=== PATIENT | female | born 1950 | race Caucasian/White ===

== ENCOUNTER 2016-10-13 21:30 | Emergency (ER) | payer BC, OTHER ==
[~2016-10-13] VITALS: Ht 160 cm; Wt 56.3 kg
[2016-10-13 21:32] VITALS: Ht 160 cm; Wt 56.3 kg
[2016-10-13] MEDS ORDERED: CYAN100020 PO (21:59)
[2016-10-13] MEDS ORDERED: OYST500T47 PO (21:59)
[2016-10-13] MEDS ORDERED: CHOL100010 PO (21:59)
[2016-10-13] MEDS ORDERED: SIMV20TA2 PO (21:59)
[2016-10-13] MEDS ORDERED: CEFTRIAXONE SOD INJ 1 GM ADDVIAL IV STA (22:35)
[2016-10-13 22:45] LABS: BASO % 0.5 %; BASO ABS # 0.03 K/uL (0-0.2); COMPLETE YES; EOS % 1.3 %; HEMATOCRIT 38.7 % (37-47); IG% 0.2 %; LYMPH % 27.3 %; LYMPH ABS # 1.64 K/uL (1.2-3.4); MEAN CORPUSCULAR HEMOGLOBIN 31.7 pg (25-34); MEAN PLATELET VOLUME 9.7 fL (7.4-10.4); NEUT % 64.7 %; PLATELET COUNT 161 K/uL (130-400); RED BLOOD COUNT 3.91 M/uL (4.2-5.4)
[2016-10-13 22:58] LABS: CREATININE 0.67 mg/dl (0.60-1.20); POTASSIUM 3.5 mmol/L (3.5-5.1)
[2016-10-13 23:02] LABS: CALCIUM 9.6 mg/dl (8.5-10.1)
[2016-10-14] MEDS ORDERED: SULFAMETHOXAZOLE/TRIMETHOPRIM DS 800/160MG TAB PO STA (00:17)
[2016-10-14] MEDS ORDERED: SULF800T23 PO (00:20)
[2016-10-14] MEDS ORDERED: CEPH500C PO (00:20)
[2016-10-14 00:21] VITALS: BP 137/65; PULSE 70; TEMP 36.8; O2SAT 95
--- NOTE | 2016-10-14 00:21 | EMERGENCY ROOM VISIT NOTE ---
History First contact with patient: 22:27 Chief Complaint: BITE Stated Complaint: BUG BITE RED SWOLLEN WARM TO TOUCH, LEFT ARM History of Present Illness The patient is a 66 year old female who presents to the Emergency Room with complaints of redness and pain of the left lower arm. The patient states that earlier today, she noticed a quarter-sized area of redness over the left lower arm. She states that throughout the day the swelling and pain increased. She rates her current discomfort a 4/10. She states that she has been itching that area and feels there may be a bug bite. She denies any fevers or difficulty moving the hand or wrist. The patient is otherwise healthy and denies any recent injuries to the arm. She denies any numbness or weakness. Review of Systems A complete 10 point review of systems was reviewed with the patient with pertinent positives and negatives as per history of present illness. All else were negative. Social History Smoking Status: Never Smoker Current/Historical Medications Scheduled Cephalexin Monohydrate (Keflex), 500 MG PO QID Cholecalciferol (Vitamin D), Unknown Dose PO DAILY Cyanocobalamin (Vitamin B12), Unknown Dose PO DAILY Oyster Shell (Calcium), Unknown Dose PO DAILY Simvastatin (Zocor), 20 MG PO QPM Sulfa/Trimethoprim (Bactrim Ds 800MG/160MG), 1 TAB PO BID Allergies Coded Allergies: No Known Allergies (Unverified , 10/13/16) Physical Exam Vital Signs Date Time Temp Pulse Resp B/P Pulse Ox O2 Delivery O2 Flow Rate FiO2 10/14/16 00:21 36.8 70 18 137/65 95 Room Air 10/13/16 21:32 36.5 83 18 154/68 99 Room Air Physical Exam VITALS: Vitals are noted on the nurse's note and reviewed by myself. Vital signs stable. GENERAL: This is a 66-year-old female, in no acute distress, nondiaphoretic, well-developed well-nourished. SKIN: Exam reveals an area of erythema over the dorsal aspect of the left forearm which does not extend past the wrist. This area is warm to touch and tender to palpation. There is a tiny, 2 mm vesicular lesion in the area of erythema. There is no induration or fluctuance. There is no drainage. HEART: Regular rate and rhythm without murmurs gallops or rubs. LUNGS: Clear to auscultation bilaterally without wheezes, rales or rhonchi. MUSCULOSKELETAL: Full range of motion of the left hand, wrist and elbow. NEURO: Patient was alert and oriented to person place and time. Normal sensation to light and sharp touch. Medical Decision & Procedures Laboratory Results 10/13/16 22:15 Red Blood Count 3.91, Mean Corpuscular Volume 99.0, Mean Corpuscular Hemoglobin 31.7, Mean Corpuscular Hemoglobin Concent 32.0, Mean Platelet Volume 9.7, Neutrophils (%) (Auto) 64.7, Lymphocytes (%) (Auto) 27.3, Monocytes (%) (Auto) 6.0, Eosinophils (%) (Auto) 1.3, Basophils (%) (Auto) 0.5, Neutrophils # (Auto) 3.88, Lymphocytes # (Auto) 1.64, Monocytes # (Auto) 0.36, Eosinophils # (Auto) 0.08, Basophils # (Auto) 0.03 10/13/16 22:15 Test 10/13/16 22:15 White Blood Count 6.00 K/uL (4.8-10.8) Red Blood Count 3.91 M/uL (4.2-5.4) Hemoglobin 12.4 g/dL (12.0-16.0) Hematocrit 38.7 % (37-47) Mean Corpuscular Volume 99.0 fL (80-100) Mean Corpuscular Hemoglobin 31.7 pg (25-34) Mean Corpuscular Hemoglobin Concent 32.0 g/dl (32-36) Platelet Count 161 K/uL (130-400) Mean Platelet Volume 9.7 fL (7.4-10.4) Neutrophils (%) (Auto) 64.7 % Lymphocytes (%) (Auto) 27.3 % Monocytes (%) (Auto) 6.0 % Eosinophils (%) (Auto) 1.3 % Basophils (%) (Auto) 0.5 % Neutrophils # (Auto) 3.88 K/uL (1.4-6.5) Lymphocytes # (Auto) 1.64 K/uL (1.2-3.4) Monocytes # (Auto) 0.36 K/uL (0.11-0.59) Eosinophils # (Auto) 0.08 K/uL (0-0.5) Basophils # (Auto) 0.03 K/uL (0-0.2) RDW Standard Deviation 47.5 fL (36.4-46.3) RDW Coefficient of Variation 13.3 % (11.5-14.5) Immature Granulocyte % (Auto) 0.2 % Immature Granulocyte # (Auto) 0.01 K/uL (0.00-0.02) Anion Gap 6.0 mmol/L (3-11) Est Creatinine Clear Calc Drug Dose 68.3 ml/min Estimated GFR () 106.2 Estimated GFR (Non- 91.6 BUN/Creatinine Ratio 16.0 (10-20) Calcium Level 9.6 mg/dl (8.5-10.1) Medications Administered Medications (Trade) Dose Ordered Sig/Candida Route Start Time Stop Time Status Last Admin Dose Admin Ceftriaxone Sodium (Rocephin Inj) 1 gm NOW STAT IV 10/13/16 22:35 10/13/16 22:37 DC 10/13/16 22:47 1 GM Trimethoprim/ Sulfamethoxazole (Septra Ds 800/ 160MG Tab) 1 tab NOW STAT PO 10/14/16 00:17 10/14/16 00:18 DC 10/14/16 00:35 1 TAB Medical Decision Differential diagnosis includes cellulitis, abscess, insect bite, superficial phlebitis, DVT, among others. The patient was evaluated as above. Exam is consistent with a cellulitis. CBC showed no leukocytosis. The patient was given 1 g Rocephin IV. The cellulitis was traced with a skin marker. She will be placed on Keflex and Bactrim. She was instructed to return to her primary care provider or here in 2 days for a recheck, or sooner for worsening symptoms. The patient was independently evaluated by Dr. Gipson, ED attending physician, who agreed with my assessment and treatment plan. Impression Primary Impression: Cellulitis of left arm Departure Information Dispostion Home / Self-Care Condition GOOD Prescriptions Sulfa/Trimethoprim (Bactrim Ds 800MG/160MG) Tab 1 TAB PO BID for 10 Days, #20 TAB Prov: Jacey Grewal PA-C 10/14/16 Cephalexin Monohydrate (Keflex) 500 Mg Cap 500 MG PO QID for 10 Days, #40 CAP Prov: Jacey Grewal PA-C 10/14/16 Referrals Berto Spicre M.D. (PCP) Patient Instructions My [facility] Additional Instructions You were prescribed Bactrim to be taken twice daily as prescribed. This is an antibiotic. All antibiotics have the potential to cause diarrhea. Stop this medication and contact a medical provider if you were to develop any significant adverse side effects including: wheezing, shortness of breath, passing out, vomiting, or a diffuse rash. Always take antibiotics as directed and COMPLETE the ENTIRE course regardless of the improvement of your symptoms. You were prescribed Keflex to be taken 4 times daily as prescribed. This is an antibiotic. All antibiotics have the potential to cause diarrhea. Stop this medication and contact a medical provider if you were to develop any significant adverse side effects including: wheezing, shortness of breath, passing out, vomiting, or a diffuse rash. Always take antibiotics as directed and COMPLETE the ENTIRE course regardless of the improvement of your symptoms. For pain control, you can use the following czbw-wzn-seumtiz medicines (if >12 yo): - Regular strength (325mg/tab) Tylenol (acetaminophen) 2 tabs every 4-6 hours as needed. Do not exceed 12 tablets in a 24 hour period. Avoid taking more than 4 grams (4000 mg) of Tylenol per day. This includes any other sources of acetaminophen you may take on a regular basis. - Regular strength (200 mg/tab) Advil (ibuprofen) 1-2 tabs every 4-6 hours as needed. Do not exceed a dose of 3200 mg per day. He should be rechecked on Tuesday by either your primary care provider or here in the emergency department. Return to the emergency department with any worsening redness, fevers, worsening swelling or any other new/concerning symptoms.
--- NOTE | 2016-10-14 01:34 | EMERGENCY ROOM VISIT NOTE ---
ED Visit Note First contact with patient: 22:27 66-year-old female with cellulitis of the left wrist was fully evaluated by Jacey Grewal PA-C. Please see her note. I also independently evaluated the patient. The patient was given IV antibiotics and discharged on oral antibiotics. Patient is to be reevaluated within the next 48 hours. IMPRESSION: Cellulitis Left Arm
== END 2016-10-14 00:38 | disposition home or self-care (01) ==
LOC: C.EDB 21:31
DX: L03.114 Cellulitis of left upper limb (principal)

== ENCOUNTER 2023-12-02 06:43 | Observation (INO) ==
--- NOTE | 2023-11-21 11:05 | PAT Medication Instructions ---
Medication Instructions Date of Service November 21, 2023 Home Medications calcium carbonate (Calcium 600) 600 mg PO DAILY cholecalciferol (vitamin D3) 25 mcg (1,000 unit) tablet (Vitamin D3) 25 mcg PO DAILY cyanocobalamin (vitamin B-12) 1,000 mcg tablet (Vitamin B-12) 1,000 mcg PO DAILY memantine 14 mg capsule sprinkle,extended release 24hr (Namenda XR) 14 mg PO QAM multivitamin-ferrous fumarate-folic acid 18 mg-400 mcg tablet (Centrum Women) 1 tab PO QAM simvastatin 20 mg tablet 20 mg PO HS MEDICATION INSTRUCTIONS: DO NOT take the morning of surgery multivitamin-ferrous fumarate-folic acid 18 mg-400 mcg tablet (Centrum Women) 1 tab PO QAM calcium carbonate (Calcium 600) 600 mg PO DAILY cholecalciferol (vitamin D3) 25 mcg (1,000 unit) tablet (Vitamin D3) 25 mcg PO DAILY cyanocobalamin (vitamin B-12) 1,000 mcg tablet (Vitamin B-12) 1,000 mcg PO DAILY Take morning of surgery With a small sip of water, OTHERWISE NOTHING TO EAT OR DRINK AFTER MIDNIGHT: memantine 14 mg capsule sprinkle,extended release 24hr (Namenda XR) 14 mg PO QAM Take evening before surgery simvastatin 20 mg tablet 20 mg PO HS Other Notes If you have any questions please call us at [phone] or [phone] or [phone] or [phone]
--- NOTE | 2023-11-24 10:51 | Anesthesiology Consultation ---
Date of Service November 24, 2023 Assessment & Plan (1) Encounter for pre-operative examination: - Infectious disease screening: Per assessment on 11/24/23: No known recent infectious disease contacts or current infectious disease symptoms. - Outpatient joint assessment: Pt currently scheduled for inpatient pathway. If surgeon requests review for outpatient joint pathway, patient is not recommended candidate for outpatient joint program from anesthesia standpoint based on available information. Chart Review Chart Review: Acceptable Risk for Surgery and Patient seen in Pre Admission Testing Teaching & Discussion Pre-Anesthesia Teaching/Discussion Notes: Instructed NPO after midnight before surgery,except medications with 15 cc of water. Medication instructions provided according to the PAT guidelines. History Surgery Operation Date: 12/02/23 07:00 Proposed Procedures p Right Total Hip Arthroplasty - Sancho Jonas MD Height/Weight Height: 5 ft 4 in Weight: 49.3 kg Allergies Allergy/AdvReac Type Severity Reaction Status Date / Time No Known Allergies Allergy Unverified 11/21/23 09:25 Medications Home Medications Medication Instructions Recorded Confirmed Last Taken calcium carbonate (Calcium 600) 600 mg PO DAILY 11/21/23 11/21/23 Unknown cholecalciferol (vitamin D3) 25 25 mcg PO DAILY 11/21/23 11/21/23 Unknown mcg (1,000 unit) tablet (Vitamin D3) cyanocobalamin (vitamin B-12) 1,000 mcg PO DAILY 11/21/23 11/21/23 Unknown 1,000 mcg tablet (Vitamin B-12) memantine 14 mg capsule 14 mg PO QAM 11/21/23 11/21/23 Unknown sprinkle,extended release 24hr (Namenda XR) multivitamin-ferrous 1 tab PO QAM 11/21/23 11/21/23 Unknown fumarate-folic acid 18 mg-400 mcg tablet (Centrum Women) simvastatin 20 mg tablet 20 mg PO HS 11/21/23 11/21/23 Unknown Wheeled Walker #1 ea 11/22/23 Unknown Past Medical History Medical History Arthritis of right hip Cognitive decline No definitive diagnosis per daughter Reason for Memantine Dyslipidemia History of COVID-19 (2021) Symptoms resolved Exercise / Class Metabolic Activity III < 4 Walking/Shop/Light housework Past Surgical History Surgical History Hx of colonoscopy Hx of vascular surgery varisose veins Past Anesthesia History No Hx of Anesthesia Complications and No Family Hx of Anesthesia Complications History of PONV No Hx of PONV and No Hx of Motion Sickness Social History Smoking Status: Never smoker Do You Dip or Chew Tobacco: No Hx Alcohol Use: Yes alcohol intake frequency: holidays/special occasions only Hx Substance Use: No substance use type: does not use Review of Systems Patient denies chest pain, shortness of breath, fever, chills, cough, wheezing, palpitations. Physical Exam Vital Signs BP 150/64 P 75 SP02 96%RA RESP 16 Physical Full cervical extension range of motion. Full TMJ range of motion. TMD 3 finger breaths Mallampati Score 1 Dentition: upper/lower full dentures Lungs: clear throughout to auscultation Cardiac: regular rate and rhythm, no murmurs noted Spine: spinal deviation Carotid arteries: negative bruit Extremities: no LE edema Lab Results Anesthesia Preop Results Results Anesthesia Widget: WBC 3.81 K/ul (4.8-10.8) L 11/24/23 Hgb 12.3 g/dl (12.0-16.0) 11/24/23 Hct 37.3 % (37.0-47.0) 11/24/23 Plt 155 K/uL (130-400) 11/24/23 Na 144 mmol/L (136-145) 11/24/23 K 4.1 mmol/L (3.5-5.1) 11/24/23 Cl 108 mmol/L (98-107) H 11/24/23 CO2 32 mmol/L (21-32) 11/24/23 BUN 7 mg/dl (6-23) 11/24/23 Creat 0.57 mg/dl (0.6-1.2) L 11/24/23 Glucose Level 96 mg/dl (70-99(Fasting)) 11/24/23 PT 10.6 Seconds (9.0-12.0) 11/24/23 PTT 26 Seconds (21-31) 11/24/23 INR 1.0 (0.9-1.1) 11/24/23 Blood Type A Negative 11/24/23 Antibody Screen NEGATIVE 11/24/23 Testing Laboratory Results Low WBC- preop testing forwarded to PCP for continuity of care* Electrocardiogram Date: 11/24/23 NSR at 68bpm. "Normal ECG" Chest X-Ray Date: 11/24/23 FINDINGS: Degenerative changes are seen in the bilateral shoulders. Calcified aortic knob is seen. The lungs are clear. No evidence of pleural effusion or p neumothorax. IMPRESSION: No acute chest disease.
[~2023-12-02 06:43] MED LIST: ROPIVACAINE 0.5% 5 MG/ML 30 ML VIAL ONE
[2023-12-02] MEDS: ACETAMINOPHEN 500 MG TAB PO SCH ×2 (07:16→14:09)
[2023-12-02] MEDS: FAMOTIDINE 20 MG TAB PO SCH (07:16)
[2023-12-02] MEDS: LR 60ML/HR IV SCH (07:17)
[2023-12-02] MEDS: dexAMETHasone**PF** 10 MG/ML VIAL IV SCH (07:17)
[2023-12-02] MEDS: CeleBREX 200 MG CAP PO SCH (07:17)
[2023-12-02] MEDS: METOCLOPRAMIDE HCL 10 MG TABLET PO SCH (07:17)
[2023-12-02] MEDS ORDERED: PROPOFOL IV EMULSION 10 MG/ML 20 ML VIAL IV ONE (07:23)
[2023-12-02] MEDS ORDERED: fentaNYL citrate PF 100 MCG/2 ML VIAL ONE (07:24)
[2023-12-02] MEDS ORDERED: MoRPHine SULFATE PF 1 MG/ML 10 ML AMP/VIAL ONE (07:24)
[2023-12-02] MEDS ORDERED: MIDAZOLAM HCL 1 MG/ML 2ML VIAL ONE (07:24)
[2023-12-02] MEDS: LR 500ML BOLUS, THEN 15ML/HR IV SCH (08:02)
[2023-12-02] MEDS ORDERED: KETOROLAC 30 MG/ML VIAL IV PRN (08:07)
[2023-12-02] MEDS ORDERED: HYDROmorphone INJ 1 MG/ML SYRINGE IV PRN (08:07)
[2023-12-02] MEDS ORDERED: ONDANSETRON INJ 2 MG/ML 2 ML VIAL IV PRN ×2 (08:07→12:14)
[2023-12-02] MEDS ORDERED: ePHEDrine sulfate 50 MG/ML AMP IV PRN (08:07)
[2023-12-02] MEDS ORDERED: ATROPINE SULFATE 0.1 MG/ML 10ML SYR IV PRN (08:07)
[2023-12-02] MEDS: TRANEXAMIC ACID 1,000 MG **IV Pre-op IV SCH (08:30)
--- NOTE | 2023-12-02 08:39 | History & Physical Bridge Note ---
Date of Service December 02, 2023 History & Physical Bridge Note I have examined the patient, reviewed the History & Physical and in the interval since the performance of the History & Physical I have noted the following changes of clinical significance: no changes noted
[2023-12-02] MEDS: ceFAZolin 2000MG 2,000 MG/15 ML SYR IV SCH (09:11)
[2023-12-02] MEDS ORDERED: PHENYLEPHRINE 100MCG/ML 10ML SYR IV ONE (09:30)
[2023-12-02] MEDS: BUPIVACAINE/EPINEPHRINE 0.5% MPF 1:200,000 30 ML VIAL ONE (10:01)
--- NOTE | 2023-12-02 10:49 | Operative Report ---
PG Post Operative Report Pre & Post Diagnosis Operation Date: 12/02/23 08:50 Pre-Op Diagnosis: Right Hip Degenerative Joint Disease Post-Op Diagnosis: Right Hip Degenerative Joint Disease I identified the patient and participated in the time-out.: Yes Procedure Operation Date: 12/02/23 08:50 Actual Procedures p Right Total Hip Arthroplasty, Cemented (Right) - Sancho Jonas MD Surgeon Sancho Jonas MD Armored Service Technician Mejia Lechuga PA-C Estimated Blood Loss 100 Findings Consistent with Post-Op Diagnosis Operative findings were Bryans right hip DJD. She had extensive grade 4 fwsk-up-slej disease the femoral head and acetabulum with acetabulum and femoral head erosions. She had an anterior acetabular osteophyte. Moderate-sized joint effusion. Fairly stiff hip preoperatively. Specimens Right femoral head sent for pathology. Anesthesia Type Spinal MAC Complications none Indications Patient is a 73-year-old female with some mild underlying dementia with underlying rheumatoid disease as well whose had a several year history of increasing right hip pain discomfort and decreased mobility. Over time she has had become more more difficulty walking due to her hip problem. She failed conservative measures. X-rays show advanced hip arthritis. She elected proceed with surgical management. We were concerned about her mild underlying dementia and I did all we could do a medical her right hip is stable as possible. This included using a dual mobility hip system. Description of Procedure Operative implants consist of: 1 Biomet G7 size 52 mm acetabular shell. 2. 6.5 cancellous acetabular screws 1 of 35 mm in length and 1 of 20 mm length. 3. 52 mm outer diameter and 42 mm inner diameter mobile-bearing metal liner. 4. DePuy size 3 [place] high offset cemented femoral stem. 5. +5/28 mm head with a 20 mm / 42 mm dual mobility polyethylene liner. 6. 10.5 as centralizer. 7. Small cement restrictor. The patient was taken the operating, identified, placed on the operating table in the supine position but all contractors were appropriately padded. IV antibiotics tried by anesthesia team. Spinal anesthetic had been implemented holding area. A Gramajo catheter was placed in sterile fashion. The patient was then placed in the left lateral decubitus position. An axillary roll was placed. Distal Birkett position was used for positioning. The right hip and leg were then prepped and draped in usual sterile fashion. A posterolateral approach to the right hip was then formed to a curvilinear incision centered over the greater trochanter. Sharp dissection carried through subcutaneous tissue down to level the IT band gluteal fascia. The IT band gluteal fascia incised longitudinally in line with skin incision. The underlying greater bursa was excised. The piriformis and external rotators along with the hip joint capsule were released from the posterior aspect the hip as a single layer. Great care was taken to the procedure protect the sciatic nerve at all times. The hip was very carefully internally rotated and dislocated. A femoral neck osteotomy cut was made about 10 mm above the lesser trochanter. Femoral head was removed and sent for pathology. The femur was re tracted anteriorly. Attention drawn the acetabulum. The labrum was excised. The pulmonary fat was excised. Sequential reaming the acetabular was then performed beginning with size 43 and progressing up to a 51. I reamed a little bit with a 52 reamer and then placed a 52 mm G7 acetabular shell in about 40 degrees lateral opening and 20 degrees of anteversion. It was fixed with 2 screws. Trial liner was placed. A small anterior osteophyte was removed. Attention drawn the femur. The proximal femur was entered with a ERUCES cutter followed by canal finder and lateralizing reamer. Then broached beginning with a size 1 and progressing up to 3. Get excellent fitted to 3. We trialed the hip and the +5 articular ball provided full stability. Leg lengths seemed equal. Soft tissue tension seemed appropriate. It was not nearly as tight in extension as her hip preoperatively. The hip was fully stable full extension and external rotation flexion to 90 degrees internal rotation over [address] I elected to place these implants. All trial implants were removed. A dual mobility metal liner was placed. A small cement restrictor was placed on the canal. A double batch Pal[place]os G c ement was mixed. This is injected in the canal and a size 3 high offset femoral stem was placed. All extraneous cement was removed. Once cement was hardened a +5/28 mm ball with a dual mobility 42 mm outer diameter/28 mm diameter liner was placed. Hip was located and once again found to be stable. Attention drawn toward closing. The wound was irrigated copious also pulsatile lavage solution. I did inject locally with 50 cc of half percent Marcaine with epinephrine. The posterior capsule and external rotators then repaired through drill holes in the posterior trochanter with #2 Tycron suture. The IT band gluteal fascia then closed in 1 PDS suture running fashion for subcutaneous tissue then closed with 2 layers of the deep layer #1 Vicryl suture subcutaneous tissue with 2-0 Dexon suture in a buried interrupted fashion. Skin was closed skin emelia. Leg was then cleaned and dried a sterile dressing with Xeroform, 4 fours, sterile ABD pad and foam tape was applied. The patient was then transferred to the recovery room in stable condition. Patient tolerated procedure well and there were no complications. Mejia Lechuga, my physician yard assistant, was present for the entire procedure. His assistance was essential and required for appropriate patient positioning, prepping and draping, surgical exposure, performing the technical details of the operation, placement the implants, closure of the wound, and placement of the sterile bandage. I attest to the content of the Intraoperative Record and any orders documented therein. Any exceptions are noted below.
--- OUTSIDE RECORDS SUMMARY | 2023-12-02 10:59 | External Medical Summary | Summary of Care ---
Author Name Unknown Organization [facility] Address [address] [facility] [place] [address] Phone [phone] Care Team Providers Care Anchor Tacker Name Role Phone Zelda Klein MD Primary Care Provider [phone] Encounter Details Date Type Department Care Team (Late st Contact Info) Description 11/24/2023 Result Scan Unspecified Department <No scans attached> Allergies No known active allergiesdocumented as of this encounter (statuses as of 11/29/2023) Medications Medication Sig Dispensed Refills Start Date End Date Status CALCIUM-VITAMIN D 250-125 MG-UNIT PO TABS pt unsure of the dose, when she remember to take it. Active VITAMIN D 1000 UNITS PO CAPS 1 cap daily Active CYANOCOBALAMIN (VITAMIN B-12) 100 MCG Tablet Take 1 Tablet by mouth in the morning. Active Latrell Multivitamin for Women Oral Tablet Take 1 Tab by mouth daily. Active Memantine HCl ER 7 MG Oral Capsule Extended Release 24 Hour (Namenda XR) Take by mouth daily. Take with largest meal of the day. Active Memantine HCl ER 14 MG Oral Capsule Extended Release 24 Hour (Namenda XR) Take 1 Capsule by mouth in the morning. Take with largest meal of the day.. 90 Capsule 3 05/30/2023 Active Simvastatin 20 MG Oral Tablet (Zocor)Indications:Dy slipidemia, goal LDL below 130 TAKE 1 TABLET BY MOUTH ONCE DAILY AT BEDTIME 90 Tablet 3 06/20/2023 Active documented as of this encounter (statuses as of 11/29/2023) Active Problems Problem Noted Date Diagnosed Date Memory deficit 04/26/2023 Rotator cuff arthropathy of right shoulder 04/26 Chronic bilateral low back pain without sciatica 04/26/2023 Unspecified dementia, unspec ified severity, without behavioral disturbance, psychotic disturbance, mood disturbance, and anxiety 04/26/2023 Dyslipidemia, goal LDL below 130 01/16/2013 Vitamin D deficiency 08/24/2011 ADVANCE DIRECTIVE INFORMATION 04/16/2005 Overview: No, Advance Directive brochure offered , patient declined. Personal history of colonic polyps 11/02/2004 Age-related osteoporosis wit hout current pathological fracture 12/23/2003 Varicose vein of leg 12/05/1998 documented as of this encounter (statuses as of 11/29/2023) Resolved Problems Problem Noted Date Diagnosed Date Resolved Date Viral URI 06/30/2017 2017 Other primary thrombocytopenia 08/24/2011 06/30/2017 Hyperlipidemia with target LDL less than 100 2 01/16/2013 Overview: ICD-10 update of inactive term Other, multiple, and unspeci fied sites, insect bite, nonvenomous, without mention of infection(919.4) 04/02/2010 04/02/2010 INSECT BITE-tick 04/02/2010 2017 SPRAIN LUMBOSACRAL 09/21/1999 8 Dyslipidemia, goal to be determined 12/05/1998 03/12/2011 documented as of this encounter (statuses as of 11/29/2023) Immunizations Name Administration Dates Next Due COVID-19 mRNA, LNP-s, No Pre serve, 2-Dose Series (Moderna) 08/01/2020,07/04/2020 COVID-19, MRNA-LNP, 23-24, P F, 50 MCG/0.5 mL, 12 YRS AND ABOVE, IM (MODERNA-Spikevax) 04/01/2023 COVID-19, mRNA, LNP-s, PF, B ooster, 100mcg/0.5mg (Moderna) 12/24/2021 Pneumococcal Conjugate Vacc, 13 Valent (Prevnar) 07/24/2015 Pneumococcal Polysaccharide PPV23 (Pneumovax) 08/11/2016 Seasonal Influenza, PF, 6 M & above, IM , (FluLaval or Fluzone) 02/19/2020,02/20/2019,02/17/2018 Seasonal Influenza, Quadriva lent Hd (Fluzone Hd) 02/17/2023,03/18/2022,02/23/2021 Seasonal Influenza, Quadriva lent, No Preserve, IM 02/28/2017,04/16/2016 Seasonal Influenza, Split, I IV3, With Preserve, Inj 02/27/2015,03/14/2014,02/28/2013,02/12,03/12/2011 02/28/2016 TDAP (age 10 and older)(Boostrix) 12/07/2021 TDAP, Age 7 and older, IM (Adacel) 04/02/2011 Varicella Zoster Vaccine (Adult) 12/16/2011 Zoster Vaccine Recombinant (Shingrix) 04/02/2019 ,11/15/2018,11/25/2017 documented as of this encounter Social History Tobacco Use Types Packs/Day Years Used Date Smoking Tobacco: Never Passive Smoke Exposure: Never Smokeless Tobacco: Never Alcohol Use Standard Drinks/Week Comments Yes 0 (1 standard drink = 0.6 oz pur e alcohol) rarely PHQ-2 Answer Date Recorded PHQ Adult Total Score 0 04/05/2023 Hunger Vital Sign Answer Date Recorded Within the past 12 months, y ou worried that your food would run out before you got the money to buy more. Never true 04/05/20 23 Within the past 12 months, t he food you bought just didn't last and you didn't have money to get more. Never true 04/05/2023 Sex and Gender Information Value Date Recorded Sex Assigned at Female 11/28/2017 4:11 PM EDT Gender Identity Female 11/28/2017 4:11 PM EDT Sexual Orientation Straight 11/28/2017 4: 11 PM EDT Job Start Date Occupation Industry Not on file Not on file Not on file documented as of this encounter Plan of Treatment Upcoming Encounters Date Type Department Care Team (Late st Contact Info) Description 11/29/2023 2:00 PM EDT Office Visit [place] [address] [facility] [place] [address] Dinh Kern MD [address] [place] [facility] [place] [address] 04/11/2024 10:00 AM EDT Nurse Only Ancillary Department, [place] [address] [place] [address] [place], Nurse [facility] [address] [place] [facility] [place] [address] 07/24/2024 10:00 AM EST Office Visit Rheumatology [place] [id number] [place] [address] Munira Gonzales CRNP [address] [place] [address] Scheduled Procedures Name Priority Associated Diagnoses Date/Ti me COLONOSCOPY FLEXIBLE PROXIMA L DIAGNOSTIC Recall Special screening for malignant neoplasms, colon Health Maintenance Due Date Last Done Comments Cologuard 1995 Fecal Occult Blood Test 1995 Sigmoidoscopy 1995 COVID-19 Vaccine ( season) 2023 04/01/2023, 12/24/2021, 08/01/2020, Additional history exists Mammogram 11/18/2023 11/17/2022, 12/2022, 08/05/2021, Additional history exists Depression Screening 04/05/2024 04/05/2023 Colonoscopy 05/02/2024 05/02/2014, 04/14, 04/22/2004 Colorectal Cancer Screening 05/02/2024 DXA Scan 12/15/2024 12/15/2022, 10/2022, 09/27/2018, Additional history exists Lipid Panel 02/18/2028 02/17/2023, 07/14, 06/02/2020, Additional history exists DTaP,Tdap,and Td Vaccines (3 - Td or Tdap) 12/08/2031 12/07/2021, 04/02/2011, 11/29/2002 *BISPHONATE OR OTHER ACCEPTABLE MEDICATION NEEDED FOR OSTEOPOROSIS (REFER TO SMARTSET #1146) Addressed 05/21/2015 (Not indicated) Overridden with the intention of not completing the topic Pneumococcal Vaccine: 65+ Years Completed 08/11/2016, 07/24/2015 Zoster Vaccines Completed 04/02/2019, 10/2018, 11/25/2017, Additional history exists VITAMIN D LEVEL ONCE IN A LIFETIME-USE SMARTSET# [id number] Completed 02/16/2022, 06/02/2020, 02/20/2019, Additional history exists Influenza Vaccine (FLU shot) Completed 02/17/2023, 03/18/2022, 02/23/2021, Additional history exists GARDASIL-HPV IMMUNIZATION SERIES Aged Out No longer eligible based on patient's age to complete this topic Hepatitis B Aged Out No longer eligi ble based on patient's age to complete this topic MENINGOCOCCAL (MENACTRA/MENVEO) Aged Out No longer eligible based on patient's age to complete this topic documented as of this encounter Medical Devices Not on filedocumented as of this encounter Procedures Procedure Name Priority Date/Time Associated Diagnosis Comments EKG SCANNED RESULT 11/24/2023 documented in this encounter Results * EKG SCANNED RESULT (11/24/2023) 11/24/2023 No Physician Data Unknown EKG documented in this encounter Care Teams Anchor Tacker Relationship Specialty Start Date End Date Zelda Klein MD [address] [place] [address] PCP - General Internal Medicine 02/16/22 documented as of this encounter
--- OUTSIDE RECORDS SUMMARY | 2023-12-02 10:59 | External Medical Summary | Summary of Care ---
Author Name Unknown Organization [facility] Address [address] [place] [facility] [place] [place] [address] Phone [phone] Care Team Providers Care Weaver Apprentice Name Role Phone Zelda Klein MD Primary Care Provider [phone] Encounter Details Date Type Department Care Team (Late st Contact Info) Description 11/29/2023 Orders Only [place] [address] [place] [address] Zelda Klein MD [address] [place] [address] Allergies No known active allergiesdocumented as of [...] Description 11/29/2023 2:00 PM EDT Office Visit [facility] [place] [address] [facility] [phone] Dinh Kern MD [address] [place] [facility] [place] [address] 04/11/2024 10:00 AM EDT Nurse Only Ancillary Department, [place] [address] [facility] [address] [place], Nurse Annual [facility] [address] [facility] [place] [phone] 07/24/2024 10:00 AM EST Office Visit Rheumatology [place] [address] [place] [address] Munira Gonzales CRNP [facility] [place], [place] [address] Scheduled Procedures Name Priority Associated Diagnoses Date/Ti [...] Cancer Screening 05/02/2024 DXA Scan 12/15/2024 12/15/2022, 0710/2022, 09/27/2018, Additional history exists Lipid Panel 02/18/2028 [...] D LEVEL ONCE IN A LIFETIME-USE SMARTSET# 27971 Completed 02/16/2022, 06/02/2020, 02/20/2019, Additional history exists [...] Procedure Name Priority Date/Time Associated Diagnosis Comments XR CHEST 2 VIEWS Routine 11/24/2023 documented in this encounter Results * XR CHEST 2 VIEWS (11/24/2023) Anatomical Region Laterality Modality Chest Other 11/24/2023 Sancho Jonas MD RADIOLOGY (RAD G ENERAL) documented in this encounter Care Teams Weaver Apprentice Relationship Specialty Start Date End Date Zelda Kleni MD [address] [place], [place] [phone] PCP - General Internal Medicine 02/16/22 documented as of this encounter
--- OUTSIDE RECORDS SUMMARY | 2023-12-02 10:59 | External Medical Summary | Summary of Care ---
Author Name Unknown Organization [facility] Address [address] [place] [facility] [place] [address] Phone [phone] Care Team Providers Care Energy Crop Farmer Name Role Phone Zelda Klein MD Primary Care Provider [phone] Encounter Details Date Type Department Care Team (Late st Contact Info) Description 11/29/2023 Orders Only [place] [address] [place] [address] Zelda Klein MD [address] [place] [address] Allergies No known active allergiesdocumented [...] 2:00 PM EDT Office Visit [facility] Practice, [place] [address] [facility] [phone] Dinh Kern MD [address] [place] [facility] [place] [address] 04/11/2024 10:00 AM EDT Nurse Only Ancillary Department, [place] [address] [facility] [address] [place], Nurse Annual [facility] [address] [facility] [place] [phone] 07/24/2024 10:00 AM EST Office Visit Rheumatology [place] [address] [place] [address] Munira Gonzales CRNP [facility] [place], [place] [address] Scheduled Procedures Name Priority Associated Diagnoses Date/Ti [...] D LEVEL ONCE IN A LIFETIME-USE SMARTSET# [id number] Completed 02/16/2022, 06/02/2020, 02/20/2019, Additional history exists [...] Procedure Name Priority Date/Time Associated Diagnosis Comments CHEMISTRY-OUTSIDE Routine 11/24/2023 documented in this encounter Results * (ABNORMAL) CHEMISTRY-OUTSIDE (11/24/2023) Not all results display below - see scan for full detail OUTSIDE LAB (SEE SCANNED REPORT) Comment:SCAN INCLUDES: BMP, PT INR, PTT, CBCD CREATININE-OUTSID E LAB 0.57(A) 0.6 - 1.2 MG/DL OUTSIDE LAB (SEE SCANNED REPORT) EGFR-OUTSIDE LAB 92.0 ML/MIN OUT SIDE LAB (SEE SCANNED REPORT) POTASSIUM-OUTSIDE LAB 4.1 3.5 - 5.1 MMOL/L OUTSIDE LAB (SEE SCANNED REPORT) GLUCOSE-OUTSIDE LAB 96 70 - 99 MG/DL OUTSIDE LAB (SEE SCANNED REPORT) HOURS FASTING OUTSID E LAB (SEE SCANNED REPORT) TRIGLYCERIDES-OUT SIDE LAB OUTSIDE LAB (SEE SCANNED REPORT) CHOLESTEROL-OUTSI DE LAB OUTSIDE LAB (SEE SCANNED REPORT) HDL-OUTSIDE LAB OUTS [facility] (SEE SCANNED REPORT) CHOL/HDL RATIO-OUTSIDE LAB OUTSIDE LA B (SEE SCANNED REPORT) LDL (CALCULATED)-OUTS [facility] OUTSIDE LAB (SEE SCANNED REPORT) LDL (DIRECT MEASURE)-OUTSIDE LAB OUTSIDE LAB (SEE SCANNED REPORT) HEMOGLOBIN, Q9C-APIHQET LAB OUTSIDE LAB (SEE SCANNED REPORT) PHOSPHORUS-OUTSID E LAB OUTSIDE LAB (SEE SCANNED REPORT) PTH-OUTSIDE LAB OUTS [facility] (SEE SCANNED REPORT) MICROALBUMIN RATIO-OUTSIDE LAB OUTSIDE LA B (SEE SCANNED REPORT) PROTEIN, UA-OUTSIDE LAB OUTSIDE LAB (SEE SCANNED REPORT) HGB 12.3 12 - 16 G/DL OUTSIDE LAB (SEE SCANNED REPORT) 11/24/2023 Sancho Jonas MD LABORATORY OUTSIDE LAB (SEE SCANNED REPORT) documented in this encounter Care Teams Energy Crop Farmer Relationship Specialty Start Date End Date Zelda Klein MD [address] [place] [facility] [place] [address] PCP - General Internal Medicine 02/16/22 documented as of this encounter
--- OUTSIDE RECORDS SUMMARY | 2023-12-02 10:59 | External Medical Summary | Summary of Care ---
Author Name Unknown Organization [facility] Address [address] [facility] [address] Phone [phone] Care Team Providers Care Staffing Coordinator Name Role Phone Zelda Klein MD Primary Care Provider [phone] Reason for Visit * Reason Comments Follow Up Pt here for 6 month follow upPt is having trouble with memory Encounter Details Date Type Department Care Team (Late st Contact Info) Description 11/29/2023 2:00 PM EDT Office Visit [place] [address] [place] [address] Dinh Kern MD [address] [place] [address] Moderate dementia without behavioral disturbance, psychotic disturbance, mood disturbance, or anxiety, unspecified dementia type (HCC)*; Memory deficit; Memory loss Allergies No known active allergiesdocumented as of [...] by mouth daily. Active Memantine HCl ER 14 MG Oral Capsule Extended Release 24 Hour (Namenda XR) Take 1 Capsule by mouth in the morning. Take with largest meal of the day.. 90 Capsule 3 05/30/2023 Active Simvastatin 20 MG Oral Tablet (Zocor)Indications :Dyslipidemia, goal LDL below 130 TAKE 1 TABLET BY MOUTH ONCE DAILY AT BEDTIME 90 Tablet 3 06/20/2023 Active Memantine HCl ER 7 MG Oral Capsule Extended Release 24 Hour (Namenda XR) Take by mouth daily. Take with largest meal of the day. 11/29/2023 Discontinue d(Patient preference/ discontinua tion) documented as of this encounter (statuses as of 11/29/2023) Active Problems Problem Noted Date Diagnosed Date Memory loss 04/26/2023 Rotator cuff arthropathy of right shoulder [...] money to get more. Never true 04/05/2023 Childcare Answer Date Recorded Do you feel overwhelmed with taking care of a child, family member or friend? No 04/05/2023 Does your family need help f inding childcare? (Household - for ages 0-17 years) Not on file 04/05/2023 Clothing Answer Date Recorded Have you been unable to get clothing when it was really needed? No 04/05/2023 Is your family able to get c lothes or diapers when needed? (Household - for ages 0-17 years) Not on file 04/05/2023 Personal Safety Answer Date Recorded Do you feel unsafe or have concerns for your saf ety? No 04/05/2023 Do you have concerns for you r family's safety? (Household - for ages 0-17 years) Not on file 04/05/2023 Utilities Answer Date Recorded Do you have trouble paying y our heating, water, or electric bill? No 04/05/2023 Is your family able to pay t he heat, water, or electric bill? (Household - for ages 0-17 years) Not on file 04/05/2023 Does your family have access to good internet? (Household - for ages 0-17 years) Not on file 04/05/2023 Employment Status Answer Date Recorded Are you unemployed or without regular income? No 04/05/2023 Does the household have a [facility] source of income? (Household - for ages 0-17 years) Not on file 04/05/2023 Social Connections Answer Date Recorded How often do you feel lonely or isolated from th ose around you? Never 04/05/2023 Financial Resource Strain Answer Date R ecorded Do you have any trouble payi ng for your medications, or do you think you might in the future? No 04/05/2023 Does your family have troubl e paying for medicine? (Household - for ages 0-17 years) Not on file 04/05/2023 Transportation Needs Answer Date Record ed READ ONLY Do you have troubl e getting a ride to medical visits or work? Never True 04/05/2023 Does your family have a hard time getting a ride to doctors visits? (Household - for ages 0-17 years) Not on file 04/05/2023 Has lack of transportation k ept you from medical appointments, meetings, work, or from getting things needed for daily living? Check all that apply. (Adult - for ages 18 years and over) Not on file 04/05/2023 Do you (or your family) have trouble finding or paying for a ride (transportation)? (Household - for ages 0-17 years) Not on file 04/05/2023 Housing Stability Answer Date Recorded Do you currently live in a s helter or have no steady place to sleep at night? No 04/05/2023 READ ONLY Do you think you a re at risk of becoming homeless? No 04/05/2023 Does your family worry about paying for your home or becoming homeless? (Household - for ages 0-17 years) Not on file 1 Are you homeless or worried that you might be in the future? (Adult - for ages 18 years and over) Not on file Are you (or your family) hansel eless or worried that you might be in the future? (Household - for ages 0-17 years) Not on file Food Insecurity Answer Date Recorded Do you need food for this week? No 04/05/2023 Are you able to get enough f ood for your family? (Household - for ages 0-17 years) Not on file 04/05/2023 Does your family need food t his week? (Household - for ages 0-17 years) Not on file 04/05/2023 Do you always have enough fo od for your family? (Household - for ages 0-17 years) Not on file 04/05/2023 Sex and Gender Information Value Date Recorded Sex Assigned at Female 11/28/2017 4:11 PM EDT Gender Identity Female 11/28/2017 4:11 PM EDT Sexual Orientation Straight 11/28/2017 4: 11 PM EDT Job Start Date Occupation Industry Not on file Not on file Not on file documented as of this encounter Last Filed Vital Signs Vital Sign Reading Time Taken Comments Blood Pressure 128/68 11/29/2023 1:41 PM EDT Pulse 84 11/29/2023 1:41 PM EDT Temperature - - Respiratory Rate 16 11/29/2023 1:41 PM EDT Oxygen Saturation 97% 11/29/2023 1:41 PM EDT Inhaled Oxygen Concentration - - Weight 48.6 kg (107 lb 3.2 oz) 11/29/2023 1:41 P M EDT Height - - Body Mass Index 21.65 04/26/2023 1:04 PM EST documented in this encounter Progress Notes * Dinh Kern MD - 11/29/2023 2:00 PM EDT Subjective: Nicolasa Lynch is a 73 year old female. Chief Complaint Patient presents with Follow Up Pt here for 6 month follow up Pt is having trouble with memory HPI: A 73-year-old seen today in part as a six-month recheck especially in regards to known short-term memory difficulties. She was started on Namenda per Dr. Klein about 1 year ago. She asked for referral to Neurology for further evaluation in this regard. She is scheduled for right hip replacement surgery with Dr. Sancho Jonas at [facility] on December 02 2023. She has already had her pre anesthesia evaluation including chest x-ray which was Um remarkable and a normal EKG and blood work which showed normal renal function and electrolytes. She would slightly low white blood cell count and red blood cell count and hemoglobin but within normal limits. She has been bothered with pain in the right hip especially trying to get up out of a chair and with walking. She has not bothered with exertional chest pain or shortness of breath or abnormal bleeding or chronic cough or febrile illness. She is some slight ankle edema which is chronic in nature. Past medical history is notable for the memory deficits consistent with dementia . She does not have a history of cardiovascular disease including no history of hypertension. She has not diabetic. She does not have a history of COPD. She has a history of an episode of phlebitis in the past but no history of thromboembolic disease. Overall she really has enjoyed good health. Patient Active Problem List Diagnosis Varicose vein of leg Age-related osteoporosis without current pathological fracture Personal history of colonic polyps ADVANCE DIRECTIVE INFORMATION Vitamin D deficiency Dyslipidemia, goal LDL below 130 Memory deficit Rotator cuff arthropathy of right shoulder Chronic bilateral low back pain without sciatica Unspecified dementia, unspecified severity, without behavioral disturbance, psychotic disturbance, mood disturbance, and anxiety (HCC) Current Outpatient Medications Medication Sig Dispense Refill CALCIUM-VITAMIN D 250-125 MG-UNIT PO TABS pt unsure of the dose, when she remember to take it. VITAMIN D 1000 UNITS PO CAPS 1 cap daily CYANOCOBALAMIN (VITAMIN B-12) 100 MCG Tablet Take 1 Tablet by mouth in the morning. Latrell Multivitamin for Women Oral Tablet Take 1 Tab by mouth daily. Memantine HCl ER 14 MG Oral Capsule Extended Release 24 Hour (Namenda XR) Take 1 Capsule by mouth in the morning. Take with largest meal of the day.. 90 Capsule 3 Simvastatin 20 MG Oral Tablet (Zocor) TAKE 1 TABLET BY MOUTH ONCE DAILY AT BEDTIME 90 Tablet 3 No current facility-administered medications for this visit. Review of patient's allergies indicates: No Known Allergies Objective: BP 128/68 | Pulse 84 | Resp 16 | Wt 48.6 kg (107 lb 3.2 oz) | SpO2 97% | BMI 21.65 kg/m | BSA 1.42 m Physical Exam: CONST: alert, pleasant, no acute distress HEAD: normocephalic, atraumatic Eyes - PERRLA, EOM'I OROPHARYNX: clear, no swelling or erythema, moist CV: regular rate and rhythm, no murmur CHEST: clear to auscultation bilaterally, no rales or wheezing ABD: soft, non tender, non distended, no masses or hepatosplenomegaly EXT: Um trace bilateral ankle edema, slightly worse on the left. no joint swelling or deformities, NEURO: AAOx3, no gross focal deficits, cerebellar signs normal, affect appropriate MENTAL STATUS: no evidence of thought disorder, no delusional thought, no evidence of paranoia, SKIN: no rash or significant lesions Mini mental status exam : score of 12 out of 30 ASSESSMENT/PLAN: Severe end-stage right hip osteoarthritis-patient is considered to be medically optimized for the planned right hip replacement surgery with Dr. Jonas. I do not feel any further evaluation necessaryat this time. There will be some increased challenge postoperatively I believe given underlying dementia. But I think ultimately she would be able to rehab at home with the help of home health agencyin physical therapy for short time. Dementia- moderate degree. continue Namenda. Refer back to Neurology for further treatment options. Dinh Kern MD documented in this encounter Nursing Notes * Ana Shirley LPN - 11/29/2023 1:38 PM EDT Chief Complaint Patient presents with Follow Up Pt here for 6 month follow up Pt is having trouble with memory documented in this encounter Plan of Treatment Upcoming Encounters Date Type Department Care Team (Late st Contact Info) Description 04/11/2024 10:00 AM EDT Nurse Only Ancillary Department, [place] [address] [place] [facility] [place] [address] [place], Nurse Annual Wellness [address] [place] [address] 05/30/2024 3:40 PM EST Office Visit Family Practice, [place] [address] [place] [facility] [place] [phone] Dinh Kern MD [address] [place] [address] 07/24/2024 10:00 AM EST Office Visit Rheumatology [place] [address] [place] [address] Munira Gonzales CRNP [address] [place], [place] [address] Scheduled Procedures Name Priority Associated Diagnoses Date/Ti [...] D LEVEL ONCE IN A LIFETIME-USE SMARTSET# [id number] Completed 02/16/2022, 06/02/2020, 02/20/2019, Additional history exists [...] Not on filedocumented as of this encounter Visit Diagnoses Diagnosis Moderate dementia without behavioral disturbance, psychotic disturbance, mood disturbance, or anxiety, unspecified dementia type (HCC)- Primary Memory deficit Memory loss Memory loss documented in this encounter Care Teams Staffing Coordinator Relationship Specialty Start Date End Date Zelda Klein MD [address] [place] [address] PCP - General Internal Medicine 02/16/22 documented as of this encounter"
--- NOTE | 2023-12-02 11:18 | Anesthesiology Progress Note ---
Date of Service December 02, 2023 Anesthesia Post Procedure Vital Signs Vital Signs: Temp Pulse Pulse Resp BP Pulse Ox O2 Del Method 12/02/23 11:10 86 18 137/61 100 Room Air 12/02/23 11:00 87 16 143/71 H 96 Room Air 12/02/23 10:50 83 16 139/63 100 Room Air 12/02/23 10:40 82 14 139/63 100 Oxymask 12/02/23 10:32 36.3 C L 87 14 132/52 L 100 Oxymask 12/02/23 07:04 36.5 C 72 20 145/72 H 94 Room Air O2 Flow Rate 12/02/23 11:10 12/02/23 11:00 12/02/23 10:50 12/02/23 10:40 3 12/02/23 10:32 6 12/02/23 07:04 Transfer of Care Handoff Completed per policy Notes Mental Status: alert / awake / arousable Patient Amnestic to Procedure: Yes Nausea / Vomiting: adequately controlled Pain: adequately controlled Airway Patency, RR, SpO2: stable & adequate BP & HR: stable & adequate Hydration State: stable & adequate Anesthetic Complications: no major complications apparent
--- NOTE | 2023-12-02 11:42 | XRay Report ---
XR hip 1V RT w pelvis HISTORY: 73 years-old Female IN PACU - Post Surgical COMPARISON: 11/17/2023 TECHNIQUE: AP view of the pelvis with crosstable lateral view of the right hip FINDINGS: Satisfactory alignment of the right hip arthroplasty. Lateral skin emelia with expected postoperativ e soft tissue swelling and deep tissue air. Moderate left hip osteoarthritis. IMPRESSION: Right hip arthroplasty with expected postoperative changes. ACT 112: Negative or not required by law. The above report was generated using voice recognition software. It may contain grammatical, syntax o r spelling errors. Electronically signed by: Dameon Holman M.D. 12/02/2023 11:41 AM
[2023-12-02] MEDS ORDERED: MAGNESIUM HYDROXIDE SUSP 30 ML UDC PO PRN (12:14)
[2023-12-02] MEDS ORDERED: bisacodyL 10 MG SUPP PR PRN (12:14)
[2023-12-02] MEDS ORDERED: traMADol HCL 50 MG TABLET PO PRN (12:14)
[2023-12-02] MEDS ORDERED: METOCLOPRAMIDE HCL INJ 5 MG/ML 2 ML VIAL IV PRN (12:14)
[2023-12-02] MEDS ORDERED: NALOXONE HCL 0.4 MG/1 ML VIAL/CARP IV PRN (12:14)
[2023-12-02] MEDS ORDERED: ALUMINUM/MAGNESIUM SUSP 30 ML UDC PO PRN (12:14)
[2023-12-02] MEDS: SODIUM CHLORIDE 0.9% 1,000 ML IV SCH (12:35)
[2023-12-02] MEDS: KETOROLAC TROMETHAMINE 15 MG/ML VIAL IV SCH (12:35)
[2023-12-02] MEDS: TRANEXAMIC ACID / 0.7% NACL 1,000 MG/100 ML BAG IV SCH (16:36)
[2023-12-02] MEDS: ceFAZolin 1000MG 1,000 MG/7.5 ML SYR IV SCH (16:36)
[2023-12-02] MEDS: ASCORBIC ACID 500 MG TAB PO SCH (17:48)
[2023-12-02] MEDS: ASPIRIN 81 MG ECTAB PO SCH (20:42)
[2023-12-02] MEDS: DOCUSATE SODIUM 100 MG CAP PO SCH (20:43)
[2023-12-02] MEDS: SENNA 8.6 MG TAB PO SCH (20:44)
[2023-12-02] MEDS: SIMVASTATIN 20 MG TAB PO SCH (20:44)
[2023-12-02] MEDS: MEMANTINE HCL 5 MG TAB PO SCH (20:45)
[2023-12-02] MEDS ORDERED: SENNA 8.6 MG TAB PO SCH (21:00)
[2023-12-03 06:53] LABS: Basophils # (auto) 0.02 K/uL (0.00-0.20); Basophils % (auto) 0.2 %; Hemoglobin 10.8 g/dl (12.0-16.0); Immature Granulocytes # (auto) 0.17 K/uL (0.01-0.20); Immature Granulocytes % (auto) 1.5 %; Lymphocytes # (auto) 0.71 K/uL (1.20-3.40); Lymphocytes % (auto) 6.4 %; Mean Corpuscular Hemoglobin 32.6 pg (25.0-34.0); Mean Corpuscular Hgb Conc 33.8 g/dL (32.0-36.0); Mean Corpuscular Volume 96.7 fL (80.0-100.0); Mean Platelet Volume 10.1 fL (9.4-12.4); Monocytes # (auto) 0.77 K/uL (0.11-0.59); Neutrophils # (auto) 9.37 K/uL (1.40-6.50); Neutrophils % (auto) 84.9 %; Platelet Count 146 K/uL (130-400); RDW Coefficient of Variation 12.3 % (11.5-14.5); RDW Standard Deviation 43.2 fL (36.4-46.3); Red Blood Count 3.31 M/uL (4.20-5.40); White Blood Count 11.04 K/ul (4.8-10.8)
[2023-12-03 07:10] LABS: BUN Creatinine Ratio 24.2 (10-20); Calcium 8.8 mg/dl (8.6-10.3); Creatinine Clr Calc Pharmacy 61.1 ml/min; Est GFR (African American) 103.7 ml/min; Est GFR (Non-African American) 89.5 ml/min; Potassium 3.4 mmol/L (3.5-5.1)
--- NOTE | 2023-12-03 08:03 | Surgery Progress Note ---
Date of Service December 03, 2023 Assessment & Plan (1) Status post right hip replacement: Plan: 73-year-old female with some underlying mild dementia postop day 1 from a right hybrid total hip replacement. As she is doing well. Hip is located. Pain is controlled. She is neurologically intact. Plan: 1. PT/OT. She can weight-bear as tolerated. Needs to obey hip precautions. 2. Pain control done okay with current pain regimen. 3. DVT prophylaxis including thigh-high teds, SCDs, aspirin twice a day. 4. Disposition plan is to discharge to home with some home health. She is got a lot of family to help. Admission and Anticipated Discharge Date Admission Date: December 02, 2023 Subjective 73-year-old female postop day 1 from a right hybrid total hip replacement. She is doing pretty well. Pain is controlled. Denies any chest pain or shortness of breath. Not feeling dizzy or lightheaded. Physical Exam Physical Exam: Physical examination is a pleasant frail elderly female. Today she is lying in bed looks pretty comfortable this morning. She is awake alert and oriented. Examination of the right hip reveals the dressing be clean dry and intact. Leg lengths are equal. She can dorsiflex and plantarflex her foot appropriately. Respiratory: normal respiratory effort, lungs clear to auscultation Cardiovascular: RRR, no murmur, no edema Gastrointestinal (Abdomen): normal bowel sounds, soft, nontender, no hepatosplenomegaly Results & Data Vital Signs (Past 12 Hours) Vital Signs Temp Pulse Resp BP Pulse Ox O2 Del Method 12/03/23 07:46 36.5 C 108 H 16 158/76 H 97 Room Air 12/03/23 03:00 36.8 C 94 H 18 164/79 H 96 Room Air 12/02/23 23:17 36.7 C 77 14 156/65 H 96 Room Air Laboratory Results Hemoglobin is 10.8. Hematocrit is 32.0. Electrolytes are stable. PG Care Time/CCT Total # of Minutes Spent Total Time Spent with Patient: Total time spent is greater than 50% in coordination of care (as documented) at patient's floor/unit and/or counseling patient: Coding Level of Care Code 58456 Post Operative Follow-Up Diagnoses Status post right hip replacement Z96.641
[2023-12-03] MEDS: CALCIUM CARBONATE 500 MG CHEWABLE TAB PO SCH (08:04)
[2023-12-03] MEDS: MULTIVITAMIN TAB PO SCH (08:04)
[2023-12-03] MEDS: CYANOCOBALAMIN (B-12) 500 MCG TABLET PO SCH (08:04)
[2023-12-03] MEDS: CHOLECALCIFEROL 25 MCG (1000 UNITS) TAB PO SCH (08:05)
[2023-12-03] MEDS: dexAMETHasone 10 MG in SYRINGE 0 ML IV SCH (08:15)
[2023-12-03] MEDS ORDERED: NON-FORMULARY MEDICATION (Multivitamin-Iron-Folic Acid [Centrum Women] 18-400 mg-mcg Table PO SCH (09:00)
[2023-12-03] MEDS: MELATONIN 3 MG TAB PO PRN (20:27)
--- NOTE | 2023-12-04 07:37 | Orthopedic Progress Note ---
Date of Service December 04, 2023 Assessment & Plan (1) Status post right hip replacement: Plan: 73-year-old female postop day 2 from a right hybrid total hip replacement. She is doing pretty well but she has been slightly confused. This is likely all related to sundowning in some fashion. She had recent surgery, anesthesia, multiple medicines, no foreign environment. I think she is getting around probably as good or better than she did before surgery. She has a lot of family help. Anything in her best interest and so likely best to go home. Plan: She can have therapy this morning. Will see how things go. The family is understanding and would like to take her home. I think she will be safe at home environment as she is got a lot of help. I think this is probably the best thing for her confusion. Limiting narcotics and just use Tylenol for pain. DVT prophylaxis including teds, SCDs, aspirin twice a day. Admission and Anticipated Discharge Date Admission Date: December 02, 2023 Subjective Patient is a 73-year-old female postop day 2 from a right hybrid total hip replacement done for severe arthritis. She is doing okay. Really not complaining much of pain. She been slightly confused. Denies any chest pain or shortness of breath Physical Exam Physical Exam: Physical exam shows a pleasant elderly frail female. She is lying in bed looks pretty comfortable. She denies any significant pain. Examination of the right hip and leg reveals a dressing clean dry and intact. Leg lengths are equal. Hips located. She is neurologically intact. Results & Data Vital Signs (Past 12 Hours) Vital Signs Temp Pulse Resp BP Pulse Ox O2 Del Method 12/03/23 19:55 36.5 C 100 H 16 161/69 H 99 Room Air
== END 2023-12-04 15:49 | disposition home health service (06) ==
LOC: ASU 06:43 → 3W 06:43

== ENCOUNTER 2025-01-03 23:05 | Inpatient (IN) ==
[2025-01-04 00:05] LABS: Hematocrit (blood only) 35.9 % (37.0-47.0); Hemoglobin 12.5 g/dl (12.0-16.0); Immature Granulocytes # (auto) 0.02 K/uL (0.01-0.20); Immature Granulocytes % (auto) 0.4 %; Mean Corpuscular Hemoglobin 32.9 pg (25.0-34.0); Mean Corpuscular Volume 94.5 fL (80.0-100.0); Platelet Count 150 K/uL (130-400); RDW Standard Deviation 43.9 fL (36.4-46.3); Red Blood Count 3.80 M/uL (4.20-5.40); White Blood Count 4.83 K/ul (4.8-10.8)
--- NOTE | 2025-01-04 00:17 | Emergency Department Note ---
History of Present Illness General Chief complaint: Arm Pain Stated complaint: RT ARM HURTS, FALL Time Seen by Provider: 01/03/25 23:30 Source: patient and family History of Present Illness Provider complaint: Fall. Found down. Maximum Pain Intensity: 5 74-year-old female with history of Alzheimer's presents to the emergency department for fall. Reportedly the patient was found down in her basement approximate 1 hour ago. Family states they not sure how long she was down for how she fell but did not think she was down for quite some time. Family is reporting that the patient is reporting right arm pain. They report that she got an injection for her right arm pain earlier today. Home Medications Medication Instructions Recorded Confirmed Type cholecalciferol (vitamin D3) 25 25 mcg PO DAILY 01/04/25 01/04/25 History mcg (1,000 unit) capsule (Vitamin D3) cyanocobalamin (vitamin B-12) 100 100 mcg PO DAILY 01/04/25 01/04/25 History mcg tablet hydrochlorothiazide 25 mg tablet 12.5 mg PO DAILY 01/04/25 01/04/25 History memantine 14 mg capsule 14 mg PO DAILY 01/04/25 01/04/25 History sprinkle,extended release 24hr [id number] 8 mg-folic 400 1 tab PO DAILY 01/04/25 01/04/25 History mcg-K 50 mcg-lutein 300 mcg tablet (Centrum Silver Women) sertraline 50 mg tablet 50 mg PO DAILY 01/04/25 01/04/25 History simvastatin 20 mg tablet 20 mg PO DAILY 01/04/25 01/04/25 History Allergies Allergy/AdvReac Type Severity Reaction Status Date / Time No Known Allergies Allergy Verified 12/02/23 07:12 Past Med/Surg History Problem List Prolonged QT interval (Acute) Fracture of humerus (Acute) Status post right hip replacement Medical History Encounter for pre-operative examination Arthritis of right hip Cognitive decline No definitive diagnosis per daughter Reason for Memantine Dyslipidemia History of COVID-19 (2021) Symptoms resolved Surgical History Hx of colonoscopy Hx of vascular surgery varisose veins Social History Smoking Status: Never smoker Second Hand Exposure: No; Do You Dip or Chew Tobacco: No; Hx Alcohol Use: Yes Hx Substance Use: No Preferred Language: Trinidadian Communication Ability: Effective Communication Ability Comment: cognitive decline 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 Beliefs That Will Affect Care: None Current Living Situation: Spouse Feels Safe at Home: Yes Assistive Devices: Cane and Walker Physical Exam Vital Signs Vital Signs - 24 hr 01/03/25 23:24 01/03/25 23:40 01/03/25 23:40 Temperature 36.7 C Temperature Source Temporal Artery Scan Pulse Rate 65 65 60 Respiratory Rate 20 22 Blood Pressure 166/72 H 151/92 H Blood Pressure Mean 103 111 Pulse Oximetry 97 98 Oxygen Delivery Method Room Air Room Air Sepsis Recent Fever Within 48 Hours No Sepsis New/Unexplained Change in Mental Status No Sepsis Action Taken by Nursing No Action Required 01/04/25 00:34 01/04/25 01:00 01/04/25 01:31 Temperature Temperature Source Pulse Rate 78 78 92 H Respiratory Rate 20 20 22 Blood Pressure 156/71 H 129/92 155/67 H Blood Pressure Mean 94 108 101 Pulse Oximetry 100 100 93 Oxygen Delivery Method Sepsis Recent Fever Within 48 Hours Sepsis New/Unexplained Change in Mental Status Sepsis Action Taken by Nursing 01/04/25 02:00 01/04/25 02:30 01/04/25 03:00 Temperature Temperature Source Pulse Rate 81 60 70 Respiratory Rate 26 H 16 17 Blood Pressure 137/116 H 151/92 H 156/54 H Blood Pressure Mean 123 114 66 Pulse Oximetry 98 99 98 Oxygen Delivery Method Sepsis Recent Fever Within 48 Hours Sepsis New/Unexplained Change in Mental Status Sepsis Action Taken by Nursing Primary Survey Airway: Intact Breathing: Normal, breath sounds equal bilaterally Circulation: Skin warm, distal pulses 2+, capillary refill less than 2 seconds Disability Pupils: Equal and reactive to light, 2 mm, brisk Secondary Survey GEN: Well developed and well-nourished HEAD: Normocephallic atruamatic EYES: Pupils round reactive to light, conjunctiva clear, extraocular movements intact, no raccoons eyes ENT: no ojeda's sign, nares patent, oropharynx clear NECK: No JVD, midline trachea, no cervical spine tenderness HEART: Regular rate and rhythm LUNGS: Clear to auscultation bilaterally. CHEST: Chest wall non-tender, no bruising/deformity ABD: soft, non-tender, no rebound or guarding, MUSC: Pelvis stable. No step offs or deformities, T-L spine non tender Right upper extremity: Patient has full range of motion of all the joints of the right upper extremity however the family is stating that she is having pain in her right upper extremity. Compartments of the right upper extremity are soft. Palpable radial and ulnar pulse. Motor and sensation intact in the median radial and ulnar nerve distribution bilaterally. NEURO: CNII-XII grossly intact, no sensory deficits Course Course 2330: The patient was evaluated in room A9. A complete history and physical exam was performed Cardiac monitoring: An order was placed for continuous cardiac monitoring. The monitor shows a rate of 60 with sinus rhythm interpreted by co 0143: Vital signs stable. Labs and imaging are unremarkable. Patient's EKG does show prolonged QTc when compared to previous EKGs in our system. Given this and the patient's falls that were unwitnessed, patient will be admitted for further evaluation by cardiology. 0202: Formal radiology read states that there is a displaced fracture of the surgical neck of the right humerus which is a new finding on the chest x-ray however the shoulder x-ray states there is an age-indeterminate proximal humerus fracture. Will obtain CT of the shoulder to see if there is any true acute fracture. Family was made aware of the possibility of fracture. Patient be placed in sling. Will still plan on admitting the patient. 0206: Spoke with Toni White on-call PA for Dr. Case from orthopedics. He agrees with the plan to place the patient in a sling and obtain CT and states someone from orthopedics will evaluate the patient in the morning. 0339: CT confirms fracture of the surgical neck of the humerus. Patient be kept in sling and admitted and be evaluated by orthopedics. Administered Medications Discontinued Medications Ioversol (Optiray 320 100ml) 100 ml IV ONCE ONE Stop: 01/04/25 00:27 Last Admin: 01/04/25 00:27 Dose: 93 ml Documented By: AIDE Potassium Chloride (Potassium Chloride Crtab 20 Meq Tabcr) 40 meq PO NOW STA Stop: 01/04/25 02:24 Last Admin: 01/04/25 02:46 Dose: 40 meq Documented By: [facility] Medical Decision Making Laboratory Data Attestation: I reviewed the patient's lab results. 01/03/25 23:40 01/03/25 23:41 Lab Results 01/03/25 01/03/25 Range/Units 23:40 23:41 WBC 4.83 (4.8-10.8) K/ul RBC 3.80 L (4.20-5.40) M/uL Hgb 12.5 (12.0-16.0) g/dl Hct 35.9 L (37.0-47.0) % MCV 94.5 (80.0-100.0) fL MCH 32.9 (25.0-34.0) pg MCHC 34.8 (32.0-36.0) g/dL RDW Std Deviation 43.9 (36.4-46.3) fL RDW Coeff of Maria Esther 12.8 (11.5-14.5) % Plt Count 150 (130-400) K/uL MPV 10.6 (9.4-12.4) fL Immature Gran % (Auto) 0.4 % Neut % (Auto) 84.5 % Lymph % (Auto) 13.9 % Milam % (Auto) 1.2 % Eos % (Auto) 0.0 % Baso % (Auto) 0.0 % Neut # (Auto) 4.08 (1.40-6.50) K/uL Lymph # (Auto) 0.67 L (1.20-3.40) K/uL Milam # (Auto) 0.06 L (0.11-0.59) K/uL Eos # (Auto) 0.00 (0.00-0.50) K/uL Baso # (Auto) 0.00 (0.00-0.20) K/uL Immature Gran # (Auto) 0.02 (0.01-0.20) K/uL PT 10.8 (9.0-12.0) Seconds INR 1.0 (0.9-1.1) APTT 24 (21-31) Seconds PTT Ratio 0.9 Sodium 140 (136-145) mmol/L Potassium 3.3 L (3.5-5.1) mmol/L Chloride 102 (98-107) mmol/L Carbon Dioxide 26 (21-32) mmol/L Anion Gap 12 H (3-11) BUN 25 H (6-23) mg/dl Creatinine 0.68 (0.6-1.2) mg/dl Est Cr Clr Drug Dosing Not Reportable eGFR 91.33 BUN/Creatinine Ratio 36.8 H (10-20) Glucose 192 H (70-99(Fasting)) mg/dl Calcium 9.8 (8.6-10.3) mg/dl Magnesium 1.8 (1.7-2.4) mg/dl Total Bilirubin 0.7 (0.2-1.0) mg/dl AST 30 (13-39) U/L ALT 17 (7-52) U/L Alkaline Phosphatase 51 (34-104) U/L Total Creatine Kinase 87 (26-192) U/L Troponin I High Sens 10.3 (0-14) pg/ml Total Protein 7.1 (6.0-8.3) gm/dl Albumin 4.2 (3.4-5.0) gm/dl Globulin 2.9 (2.5-4.0) gm/dl Albumin/Globulin Ratio 1.4 (0.9-2) Lipase 47 (11-82) U/L Imaging Data Attestation: I personally reviewed and interpreted this imaging study as follows: My Impression: Chest x-ray: No significant change from the chest x-ray in November 2024 Pelvis x-ray: No significant change from the pelvis x-ray in November 2024 Right shoulder x-ray: No acute fracture or dislocation Right elbow x-ray: No acute fracture or dislocation Right wrist x-ray: No acute fracture or dislocation Radiologist's Impression: Abdomen/Pelvis CT 01/03/25 23:40 EXAM: CT abd pelvis IV con only CLINICAL HISTORY: Trauma TECHNIQUE: Multiple contiguous axial images were obtained from the level of diaphragm to the pubis symphysis. This study was acquired after the IV administration of iodinated contrast material, given the patients indications for the examination. If IV contrast material had not been administered, the likelihood of detecting abnormalities relevant to the patients condition would have been substantially decreased. Coronal and sagittal reformatted images were generated and reviewed to improve anatomic localization and optimize lesion detection. CT scan was performed according to ALARA (as low as reasonable achievable). COMPARISON: none FINDINGS: The visualized lung bases shows few subsegmental atelectasis bands in left lung base ABDOMEN/PELVIS: The liver is normal in size and attenuation. No focal liver lesions are seen. There is no intra or extrahepatic biliary ductal dilatation. Hepatic vasculature is patent. The gallbladder is unremarkable. The spleen, pancreas, and adrenal glands are unremarkable. The kidneys are normal in size and attenuation. There is no hydronephrosis or perinephric fat stranding. No renal calculi or renal masses are identified. The ureters are normal in caliber and no ureteral calculi are seen. The bladder is normal in contour. Multiple uncomplicated colonic diverticulosis No evidence of focal or diffuse bowel wall thickening or evidence of bowel obstruction is seen. The appendix is visualized in the right lower quadrant and appears within normal limits. No adenopathy or fluid collections are seen. The aorta is normal in caliber with atheroscleoritc changes No aggressive appearing osseous lesions are identified. 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 Multiple uncomplicated colonic diverticulosis 2. 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 No acute intra abdominal abnormality detected Electronically signed by Livan Palomo 01-04-2025 01:[address] 01/03/25 23:40 EXAM: CT cervical spine wo con CLINICAL HISTORY: Trauma TECHNIQUE: Computed tomography of the cervical spine performed without intravenous contrast. Contiguous axial images were obtained from the skull base to T2, with sagittal and coronal reformatted images reconstructed from the axial data. CT scan was performed according to ALARA (as low as reasonable achievable). COMPARISON: FINDINGS: The normal cervical lordotic curvature is maintained. Grade I retrolisthesis of C4 over C5 and C5 over C6 vertebrae Degenerative changes are noted in the visualized spine in the form of marginal osteophytes, endplate irregularities and sclerosis, reduction in the disc height, small posterior disc bulges, vacuum phenomenon and facet arthropathy changes. Cervical vertebral bodies are normal in height and alignment, with no evidence of fracture or subluxation. Lateral masses of C1 are symmetrical, and the dens is intact. Prevertebral soft tissues are not widened. The remaining suprahyoid and infrahyoid soft tissues in the neck are unremarkable. Decreased intervertebral disc heights with mild posterior disc bulges indenting ventral thecal sacs at C3-C4 to C6-C7 intervertebral disc levels. No spinal canal stenosis. Mild right neuroforaminal narrowing at C6-C7 level. Thyroid gland appears unremarkable. IMPRESSION: 1.No acute fracture or subluxation in the cervical spine 2. 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 The cardiomediastinal silhouette is within normal limits. Displaced fracture of surgical neck of right humerus IMPRESSION: 1. No acute cardiopulmonary disease. No interval changes. 2. Displaced fracture of surgical neck of right humerus- New finding. Electronically signed by Livan Palomo 01-04-2025 01:[address] 01/03/25 23:40 EXAM: CT head/brain wo con CLINICAL HISTORY: Trauma TECHNIQUE: Multiple axial images are obtained from the skull base to the vertex without contrast. CT scan was performed according to ALARA (as low as reasonable achievable). COMPARISON: FINDINGS: There is cerebral atrophy. No evidence of space occupying lesion, hemorrhage, edema, mass effect, midline shift, extra axial collection, or hydrocephalus is noted. Basal cisterns are symmetric and normal in size and configuration. There are scattered periventricular hypodensities as can be seen with chronic microvascular ischemic changes. The eduardo-white matter differentiation is preserved. Visualized paranasal sinuses and mastoid air cells are well aerated. Orbital contents are within normal limits. Bony structures are intact. IMPRESSION: 1. No evidence of acute intracranial abnormality is demonstrated. 2. Chronic microvascular ischemic changes. 3. Cerebral atrophy. No new findings. Suboptimal evaluation due to motion artifacts. Electronically signed by Livan Palomo 01-04-2025 01:28 AM Pelvis X-Ray 01/03/25 23:40 EXAM: XR pelvis 1-2V routine CLINICAL HISTORY: Trauma TECHNIQUE: Radiograph of pelvis was acquired. COMPARISON: none FINDINGS: Diffuse osteopenia Total hip arthroplasty on right side No obvious acute fracture or dislocation. The soft tissues are unremarkable. Visualized joint spaces are well maintained. IMPRESSION: No acute osseous or soft tissue abnormality. Diffuse osteopenia Please note that CT is more sensitive for the detection of occult fractures and in the setting of trauma may consider further evaluation with CT of the pelvis. Electronically signed by Livan Palomo 01-04-2025 01:57 AM Elbow X-Ray 01/03/25 23:41 EXAM: XR elbow RT min 3V routine CLINICAL HISTORY: trauma TECHNIQUE: Radiograph of elbow was acquired. COMPARISON: none FINDINGS: Suspicious mild anterior fat pad elevation is noted. Ultrasound is suggested for confirmation of underlying joint effusion. No definite acute fracture, dislocation or osseous lesion. The joint spaces appear preserved. No fat pad displacement to suggest joint effusion or occult fracture. The adjacent soft tissues appear unremarkable. IMPRESSION: No acute osseous or soft tissue abnormality. Suspicious mild anterior fat pad elevation is noted. Ultrasound is suggested for confirmation of underlying joint effusion. Electronically signed by Livan Palomo 01-04-2025 01:59 AM Shoulder X-Ray 01/03/25 23:41 EXAM: XR shoulder RT min 2V routine CLINICAL HISTORY: trauma TECHNIQUE: Radiograph of shoulder was acquired. COMPARISON: none FINDINGS: Age indeterminate fracture of proximal humerus There is no evidence of dislocation or osseous lesion. The acromioclavicular joint space is preserved. The glenohumeral joint space is preserved. The adjacent soft tissues appear unremarkable, with no evidence of joint effusion. IMPRESSION: Age indeterminate fracture of proximal humerus- suggest CT for further evaluation Electronically signed by Livan Palomo 01-04-2025 01:55 AM Wrist X-Ray 01/03/25 23:41 EXAM: XR wrist RT min 3V routine CLINICAL HISTORY: trauma TECHNIQUE: Radiograph of right wrist was acquired. COMPARISON: none FINDINGS: Degenerative changes at klzage-shgxpypt-viebajuvz joint. There is no evidence of acute fracture, dislocation or osseous lesion. The carpal bones are well aligned. Rest joint spaces are well preserved. The soft tissues are unremarkable. IMPRESSION: 1. No acute osseous or soft tissue abnormality. 2. Degenerative changes at alqdfj-brirwwci-xjzxotyie joint. Electronically signed by Livan Palomo 01-04-2025 01:[address] 01/04/25 02:00 EXAM: CT shoulder RT wo con CLINICAL HISTORY: ro fx TECHNIQUE: Contiguous axial CT images of the shoulder joint were obtained without intravenous contrast. Coronal and sagittal reconstructions were likewise performed and indicated to increase the sensitivity for detecting clinically relevant pathology. CT scan was performed according to ALARA (as low as reasonably achievable). COMPARISON: none. FINDINGS: Degenerative changes in the form of asymmetrical reduction of gleno-humeral joint space, osteophytes and subchondral cystic changes are seen. Acute comminuted and displaced fracture in the region of surgical neck of proximal humerus There is mild reduction of acromioclavicular space with degenerative changes Rest of the bones are normal in alignment. The muscles around the shoulder joint are grossly unremarkable. The intermuscular fat planes are intact. IMPRESSION: 1. 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 2. Acute comminuted and displaced fracture in the region of surgical neck of proximal humerus 3. Mild reduction of acromioclavicular space with degenerative changes Electronically signed by Livan Palomo 01-04-2025 03:12 AM ECG Data Attestation: I personally reviewed and interpreted this ECG as follows: Additional Comments: EKG #1 at 0041: Sinus rhythm with a rate of 77. [place] 162 QRS [address] elevation or ST depression. Previous EKG does not show any prolonged QTc interval from EKG in November 2023 EKG #2 at 0132: Sinus rhythm with rate of 75. [place] 166 QRS [address] elevation or ST depression. [facility] Narrative 2330: The patient was evaluated in room A9. A complete history and physical exam was performed Cardiac monitoring: An order was placed for continuous cardiac monitoring. The monitor shows a rate of 60 with sinus rhythm interpreted by co 0143: Vital signs stable. Labs and imaging are unremarkable. Patient's EKG does show prolonged QTc when compared to previous EKGs in our system. Given this and the patient's falls that were unwitnessed, patient will be admitted for further evaluation by cardiology. 0202: Formal radiology read states that there is a displaced fracture of the surgical neck of the right humerus which is a new finding on the chest x-ray however the shoulder x-ray states there is an age-indeterminate proximal humerus fracture. Will obtain CT of the shoulder to see if there is any true acute fracture. Family was made aware of the possibility of fracture. Patient be placed in sling. Will still plan on admitting the patient. 0206: Spoke with Toni White on-call PA for Dr. Case from orthopedics. He agrees with the plan to place the patient in a sling and obtain CT and states someone from orthopedics will evaluate the patient in the morning. 0339: CT confirms fracture of the surgical neck of the humerus. Patient be kept in sling and admitted and be evaluated by orthopedics. Impression & Plan Fracture of humerus, Prolonged QT interval Discharge Plan Visit Data Chief Complaint: Arm Pain Stated Complaint: RT ARM HURTS, FALL ED Provider: Ketan Alcocer Discharge Problem: Fracture of humerus, Prolonged QT interval Patient Disposition: Admitted As Inpatient Condition: Fair Forms Stand Alone Forms: [facility] [employer] Prescriptions Prescriptions: No Action simvastatin 20 mg tablet 20 mg PO DAILY hydrochlorothiazide 25 mg tablet 12.5 mg PO DAILY sertraline 50 mg tablet 50 mg PO DAILY memantine 14 mg capsule,sprinkle,ER 24hr 14 mg PO DAILY cyanocobalamin (vitamin B-12) 100 mcg Tablet 100 mcg PO DAILY cholecalciferol (vitamin D3) [Vitamin D3] 25 mcg (1,000 unit) Capsule 25 mcg PO DAILY Centrum Silver Women 8 mg iron-400 mcg-50 mcg Tablet 1 tab PO DAILY Referrals Referrals: Dinh Kern MD [Primary Care Provider] - Discharge Problem: Fracture of humerus Qualifiers: Encounter type: initial encounter Humerus Location: proximal Fracture type: c losed Laterality: right
[2025-01-04 00:26] LABS: Alanine Aminotransferase 17 U/L (7-52); Albumin Globulin Ratio 1.4 (0.9-2); Alkaline Phosphatase 51 U/L (34-104); Anion Gap 12 (3-11); Bilirubin,Total 0.7 mg/dl (0.2-1.0); Blood Urea Nitrogen 25 mg/dl (6-23); Calcium 9.8 mg/dl (8.6-10.3); Carbon Dioxide 26 mmol/L (21-32); Chloride 102 mmol/L (98-107); Creatine Kinase 87 U/L (26-192); Globulin 2.9 gm/dl (2.5-4.0); Glucose 192 mg/dl (70-99(Fasting)); Lipase 47 U/L (11-82); Magnesium 1.8 mg/dl (1.7-2.4); Potassium 3.3 mmol/L (3.5-5.1); Sodium 140 mmol/L (136-145); Total Protein 7.1 gm/dl (6.0-8.3)
[2025-01-04] MEDS: OPTIRAY 320 100ml IV ONE (00:27)
[2025-01-04 00:50] LABS: INR 1.0 (0.9-1.1); Partial Thromboplastin Time 24 Seconds (21-31); Prothrombin Time 10.8 Seconds (9.0-12.0)
--- NOTE | 2025-01-04 01:28 | CT Scan Report ---
EXAM: CT head/brain wo con CLINICAL HISTORY: Trauma TECHNIQUE: Multiple axial images are obtained from the skull base to the vertex without contrast. CT scan was performed according to ALARA (as low as reasonable achievable). COMPARISON: FINDINGS: There is cerebral atrophy. No evidence of space occupying lesion, hemorrhage, edema, mass effect, midline shift, extra axial collection, or hydrocephalus is noted. Basal cisterns are symmetric and normal in size and configuration. There are scattered periventricular hypodensities as can be seen with chronic microvascular ischemic changes. The eduardo-white matter differentiation is preserved. Visualized paranasal sinuses and mastoid air cells are well aerated. Orbital contents are within normal limits. Bony structures are intact. IMPRESSION: 1. No evidence of acute intracranial abnormality is demonstrated. 2. Chronic microvascular ischemic changes. 3. Cerebral atrophy. No new findings. Suboptimal evaluation due to motion artifacts. Electronically signed by Livan Palomo 01-04-2025 01:28 AM
--- NOTE | 2025-01-04 01:31 | CT Scan Report ---
EXAM: CT abd pelvis IV con only CLINICAL HISTORY: Trauma TECHNIQUE: Multiple contiguous axial images were obtained from the level of diaphragm to the pubis symphysis. This study was acquired after the IV administration of iodinated contrast material, given the patients indications for the examination. If IV contrast material had not been administered, the likelihood of detecting abnormalities relevant to the patients condition would have been substantially decreased. Coronal and sagittal reformatted images were generated and reviewed to improve anatomic localization and optimize lesion detection. CT scan was performed according to ALARA (as low as reasonable achievable). COMPARISON: none FINDINGS: The visualized lung bases shows few subsegmental atelectasis bands in left lung base ABDOMEN/PELVIS: The liver is normal in size and attenuation. No focal liver lesions are seen. There is no intra or extrahepatic biliary ductal dilatation. Hepatic vasculature is patent. The gallbladder is unremarkable. The spleen, pancreas, and adrenal glands are unremarkable. The kidneys are normal in size and attenuation. There is no hydronephrosis or perinephric fat stranding. No renal calculi or renal masses are identified. The ureters are normal in caliber and no ureteral calculi are seen. The bladder is normal in contour. Multiple uncomplicated colonic diverticulosis No evidence of focal or diffuse bowel wall thickening or evidence of bowel obstruction is seen. The appendix is visualized in the right lower quadrant and appears within normal limits. No adenopathy or fluid collections are seen. The aorta is normal in caliber with atheroscleoritc changes No aggressive appearing osseous lesions are identified. 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 Multiple uncomplicated colonic diverticulosis 2. 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 No acute intra abdominal abnormality detected Electronically signed by Livan Palomo 01-04-2025 01:31 AM
--- NOTE | 2025-01-04 01:36 | CT Scan Report ---
EXAM: CT cervical spine wo con CLINICAL HISTORY: Trauma TECHNIQUE: Computed tomography of the cervical spine performed without intravenous contrast. Contiguous axial images were obtained from the skull base to T2, with sagittal and coronal reformatted images reconstructed from the axial data. CT scan was performed according to ALARA (as low as reasonable achievable). COMPARISON: FINDINGS: The normal cervical lordotic curvature is maintained. Grade I retrolisthesis of C4 over C5 and C5 over C6 vertebrae Degenerative changes are noted in the visualized spine in the form of marginal osteophytes, endplate irregularities and sclerosis, reduction in the disc height, small posterior disc bulges, vacuum phenomenon and facet arthropathy changes. Cervical vertebral bodies are normal in height and alignment, with no evidence of fracture or subluxation. Lateral masses of C1 are symmetrical, and the dens is intact. Prevertebral soft tissues are not widened. The remaining suprahyoid and infrahyoid soft tissues in the neck are unremarkable. Decreased intervertebral disc heights with mild posterior disc bulges indenting ventral thecal sacs at C3-C4 to C6-C7 intervertebral disc levels. No spinal canal stenosis. Mild right neuroforaminal narrowing at C6-C7 level. Thyroid gland appears unremarkable. IMPRESSION: 1.No acute fracture or subluxation in the cervical spine 2. 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
--- NOTE | 2025-01-04 01:38 | XRay Report ---
EXAM: XR wrist RT min 3V routine CLINICAL HISTORY: trauma TECHNIQUE: Radiograph of right wrist was acquired. COMPARISON: none FINDINGS: Degenerative changes at dihyht-xzenrqlz-ltzupvlje joint. There is no evidence of acute fracture, dislocation or osseous lesion. The carpal bones are well aligned. Rest joint spaces are well preserved. The soft tissues are unremarkable. IMPRESSION: 1. No acute osseous or soft tissue abnormality. 2. Degenerative changes at kmlmih-sezmuacv-acioiwrqp joint. Electronically signed by Livan Palomo 01-04-2025 01:38 AM
--- NOTE | 2025-01-04 01:40 | XRay Report ---
EXAM: XR chest 1V portable CLINICAL HISTORY: Trauma TECHNIQUE: Radiograph of chest was acquired. 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 The cardiomediastinal silhouette is within normal limits. Displaced fracture of surgical neck of right humerus IMPRESSION: 1. No acute cardiopulmonary disease. No interval changes. 2. Displaced fracture of surgical neck of right humerus- New finding. Electronically signed by Livan Palomo 01-04-2025 01:40 AM
--- NOTE | 2025-01-04 01:56 | XRay Report ---
EXAM: XR shoulder RT min 2V routine CLINICAL HISTORY: trauma TECHNIQUE: Radiograph of shoulder was acquired. COMPARISON: none FINDINGS: Age indeterminate fracture of proximal humerus There is no evidence of dislocation or osseous lesion. The acromioclavicular joint space is preserved. The glenohumeral joint space is preserved. The adjacent soft tissues appear unremarkable, with no evidence of joint effusion. IMPRESSION: Age indeterminate fracture of proximal humerus- suggest CT for further evaluation Electronically signed by Livan Palomo 01-04-2025 01:55 AM
--- NOTE | 2025-01-04 01:58 | XRay Report ---
EXAM: XR pelvis 1-2V routine CLINICAL HISTORY: Trauma TECHNIQUE: Radiograph of pelvis was acquired. COMPARISON: none FINDINGS: Diffuse osteopenia Total hip arthroplasty on right side No obvious acute fracture or dislocation. The soft tissues are unremarkable. Visualized joint spaces are well maintained. IMPRESSION: No acute osseous or soft tissue abnormality. Diffuse osteopenia Please note that CT is more sensitive for the detection of occult fractures and in the setting of trauma may consider further evaluation with CT of the pelvis. Electronically signed by Livan Palomo 01-04-2025 01:57 AM
--- NOTE | 2025-01-04 01:59 | XRay Report ---
EXAM: XR elbow RT min 3V routine CLINICAL HISTORY: trauma TECHNIQUE: Radiograph of elbow was acquired. COMPARISON: none FINDINGS: Suspicious mild anterior fat pad elevation is noted. Ultrasound is suggested for confirmation of underlying joint effusion. No definite acute fracture, dislocation or osseous lesion. The joint spaces appear preserved. No fat pad displacement to suggest joint effusion or occult fracture. The adjacent soft tissues appear unremarkable. IMPRESSION: No acute osseous or soft tissue abnormality. Suspicious mild anterior fat pad elevation is noted. Ultrasound is suggested for confirmation of underlying joint effusion. Electronically signed by Livan Palomo 01-04-2025 01:59 AM
[2025-01-04] MEDS: POTASSIUM CHLORIDE CRTAB 20 MEQ TABCR PO STA ×2 (02:46→12:32)
--- NOTE | 2025-01-04 03:13 | CT Scan Report ---
EXAM: CT shoulder RT wo con CLINICAL HISTORY: ro fx TECHNIQUE: Contiguous axial CT images of the shoulder joint were obtained without intravenous contrast. Coronal and sagittal reconstructions were likewise performed and indicated to increase the sensitivity for detecting clinically relevant pathology. CT scan was performed according to ALARA (as low as reasonably achievable). COMPARISON: none. FINDINGS: Degenerative changes in the form of asymmetrical reduction of gleno-humeral joint space, osteophytes and subchondral cystic changes are seen. Acute comminuted and displaced fracture in the region of surgical neck of proximal humerus There is mild reduction of acromioclavicular space with degenerative changes Rest of the bones are normal in alignment. The muscles around the shoulder joint are grossly unremarkable. The intermuscular fat planes are intact. IMPRESSION: 1. 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 2. Acute comminuted and displaced fracture in the region of surgical neck of proximal humerus 3. Mild reduction of acromioclavicular space with degenerative changes Electronically signed by Livan Palomo 01-04-2025 03:12 AM
--- NOTE | 2025-01-04 05:44 | History & Physical Report ---
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 As per he did not see the patient going to the basement. Patient seem to call him. When he went down she was found on the floor. and daughter in the room. Family do not know how long she laid there. But seems to be short time per er. Family do not know whether she passed out. Patient has dementia and could not remember the fall. In the ER imaging study shows right humerus fracture. Patient complains of pain in the right shoulder. Right shoulder is in sling. Patient is alert and awake and seems comfortable. Denies any headache. Denies chest pain. Denies abdominal pain. Denies back pain. No recent fevers as per family. No nausea or vomiting. No diarrhea or constipation. Eating okay. Hemodynamics okay. Fracture right humerus Status post fall Right shoulder in sling Pain control Will keep her n.p.o. Gentle fluids Consult orthopedics Questionable syncope Patient found on the floor in the basement Patient has dementia and does not remember the fall Family did not see her fall Questionable syncope Will monitor on telemetry Will check echo Cardiac consult Prolonged QTc QTc ok EKG on 11/2023 Today EKG shows QTc prolonged at 511 her zoloft dose was increased to 50mg in 06/05 Will hold Zoloft and memantine Replacing potassium Monitor on telemetry Will follow repeat labs Cardio consulted Alzheimer's disease Moderate to severe dementia with psychotic disturbance holding mematine Monitor for delirium Depression holding zoloft Vitamin D deficiency Continue supplements Hyperlipidemia On statin Hypertension On hydrochlorothiazide Will monitor DVT prophylaxis SCDs Disposition Telemetry Full code History of Present Illness Chief Complaint: Status post fall,right humerus fracture ,questionable syncope Primary Care Provider: Dinh Kern MD 74-year-old female with past medical history significant for dyslipidemia, vi tamin D deficiency, osteoporosis, right rotator cuff arthropathy, chronic bilateral low back pain, Alzheimer's disease, 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 As per he did not see the patient going to the basement. Patient seem to call him. When he went down she was found on the floor. and daughter in the room. Family do not know how long she laid there. But seems to be short time per er. Family do not know whether she passed out. Patient has dementia and could not remember the fall. In the ER imaging study shows right humerus fracture. Patient complains of pain in the right shoulder. Right shoulder is in sling. Patient is alert and awake and seems comfortable. Denies any headache. Denies chest pain. Denies abdominal pain. Denies back pain. No recent fevers as per family. No nausea or vomiting. No diarrhea or constipation. Eating okay. Hemodynamics okay. Past medical history. As mentioned above Past surgical history. Colonoscopy. Cataracts. Right total hip replacement. Social history. . No smoking. Alcohol rarely. No drug use. Allergies Allergy/AdvReac Type Severity Reaction Status Date / Time No Known Allergies Allergy Verified 12/02/23 07:12 Home Medications Medication Instructions Recorded Confirmed Type cholecalciferol (vitamin D3) 25 25 mcg PO DAILY 01/04/25 01/04/25 History mcg (1,000 unit) capsule (Vitamin D3) cyanocobalamin (vitamin B-12) 100 100 mcg PO DAILY 01/04/25 01/04/25 History mcg tablet hydrochlorothiazide 25 mg tablet 12.5 mg PO DAILY 01/04/25 01/04/25 History memantine 14 mg capsule 14 mg PO DAILY 01/04/25 01/04/25 History sprinkle,extended release 24hr odmotcla-ukqg-snzu 8 mg-folic 400 1 tab PO DAILY 01/04/25 01/04/25 History mcg-K 50 mcg-lutein 300 mcg tablet (Centrum Silver Women) sertraline 50 mg tablet 50 mg PO DAILY 01/04/25 01/04/25 History simvastatin 20 mg tablet 20 mg PO DAILY 01/04/25 01/04/25 History Past Med/Surg History Problem List Alzheimer dementia HTN (hypertension) Hypokalemia Status post fall Prolonged QT interval (Acute) Fracture of humerus (Acute) Status post right hip replacement Medical History Encounter for pre-operative examination Arthritis of right hip Cognitive decline No definitive diagnosis per daughter Reason for Memantine Dyslipidemia History of COVID-19 (2021) Symptoms resolved Surgical History Hx of colonoscopy Hx of vascular surgery varisose veins Social History Smoking Status: Never smoker Second Hand Exposure: No; Do You Dip or Chew Tobacco: No; Hx Alcohol Use: No Hx Substance Use: No Preferred Language: Urdu Communication Ability: Effective Communication Ability Comment: cognitive decline Product 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 Head- atraumatic Eyes- PERRL. ENT- oropharynx clear Neck- supple, no JVD. Heart- regular rhythm; no murmur, no gallop. Abdomen- normal bowel sounds, soft, nontender, no distension Extremities- no pretibial edema,right shoulder in sling Neuro- alert, and awake PERRL, no facial palsy; no dysarthria; moves extremities Results & Data Results & Data Vital Signs (Past 12 Hours) Vital Signs Temp Pulse Resp BP Pulse Ox O2 Del Method 01/04/25 01:31 92 H 22 155/67 H 93 01/04/25 01:00 78 20 129/92 100 01/04/25 00:34 78 20 156/71 H 100 01/03/25 23:40 65 01/03/25 23:24 36.7 C 65 20 166/72 H 97 Room Air Diagnostic Findings Laboratory Results WBC 4.83 K/ul (4.8-10.8) 01/03/25 23:40 RBC 3.80 M/uL (4.20-5.40) L 01/03/25 23:40 Hgb 12.5 g/dl (12.0-16.0) 01/03/25 23:40 Hct 35.9 % (37.0-47.0) L 01/03/25 23:40 MCV 94.5 fL (80.0-100.0) 01/03/25 23:40 MCH 32.9 pg (25.0-34.0) 01/03/25 23:40 MCHC 34.8 g/dL (32.0-36.0) 01/03/25 23:40 RDW Std Deviation 43.9 fL (36.4-46.3) 01/03/25 23:40 RDW Coeff of Maria Esther 12.8 % (11.5-14.5) 01/03/25 23:40 Plt Count 150 K/uL (130-400) 01/03/25 23:40 MPV 10.6 fL (9.4-12.4) 01/03/25 23:40 Immature Gran % (Auto) 0.4 % 01/03/25 23:40 Neut % (Auto) 84.5 % 01/03/25 23:40 Lymph % (Auto) 13.9 % 01/03/25 23:40 Camas % (Auto) 1.2 % 01/03/25 23:40 Eos % (Auto) 0.0 % 01/03/25 23:40 Baso % (Auto) 0.0 % 01/03/25 23:40 Neut # (Auto) 4.08 K/uL (1.40-6.50) 01/03/25 23:40 Lymph # (Auto) 0.67 K/uL (1.20-3.40) L 01/03/25 23:40 Camas # (Auto) 0.06 K/uL (0.11-0.59) L 01/03/25 23:40 Eos # (Auto) 0.00 K/uL (0.00-0.50) 01/03/25 23:40 Baso # (Auto) 0.00 K/uL (0.00-0.20) 01/03/25 23:40 Immature Gran # (Auto) 0.02 K/uL (0.01-0.20) 01/03/25 23:40 PT 10.8 Seconds (9.0-12.0) 01/03/25 23:40 INR 1.0 (0.9-1.1) 01/03/25 23:40 APTT 24 Seconds (21-31) 01/03/25 23:40 PTT Ratio 0.9 01/03/25 23:40 Sodium 140 mmol/L (136-145) 01/03/25 23:41 Potassium 3.3 mmol/L (3.5-5.1) L 01/03/25 23:41 Chloride 102 mmol/L (98-107) 01/03/25 23:41 Carbon Dioxide 26 mmol/L (21-32) 01/03/25 23:41 Anion Gap 12 (3-11) H 01/03/25 23:41 BUN 25 mg/dl (6-23) H 01/03/25 23:41 Creatinine 0.68 mg/dl (0.6-1.2) 01/03/25 23:41 Est Cr Clr Drug Dosing Not Reportable 01/03/25 23:41 eGFR 91.33 01/03/25 23:41 BUN/Creatinine Ratio 36.8 (10-20) H 01/03/25 23:41 Glucose 192 mg/dl (70-99(Fasting)) H 01/03/25 23:41 Calcium 9.8 mg/dl (8.6-10.3) 01/03/25 23:41 Magnesium 1.8 mg/dl (1.7-2.4) 01/03/25 23:41 Total Bilirubin 0.7 mg/dl (0.2-1.0) 01/03/25 23:41 AST 30 U/L (13-39) 01/03/25 23:41 ALT 17 U/L (7-52) 01/03/25 23:41 Alkaline Phosphatase 51 U/L (34-104) 01/03/25 23:41 Total Creatine Kinase 87 U/L (26-192) 01/03/25 23:41 Troponin I High Sens 10.3 pg/ml (0-14) 01/03/25 23:41 Total Protein 7.1 gm/dl (6.0-8.3) 01/03/25 23:41 Albumin 4.2 gm/dl (3.4-5.0) 01/03/25 23:41 Globulin 2.9 gm/dl (2.5-4.0) 01/03/25 23:41 Albumin/Globulin Ratio 1.4 (0.9-2) 01/03/25 23:41 Lipase 47 U/L (11-82) 01/03/25 23:41 Impressions Abdomen/Pelvis CT 01/03/25 23:40 EXAM: CT abd pelvis IV con only CLINICAL HISTORY: Trauma TECHNIQUE: Multiple contiguous axial images were obtained from the level of diaphragm to the pubis symphysis. This study was acquired after the IV administration of iodinated contrast material, given the patients indications for the examination. If IV contrast material had not been administered, the likelihood of detecting abnormalities relevant to the patients condition would have been substantially decreased. Coronal and sagittal reformatted images were generated and reviewed to improve anatomic localization and optimize lesion detection. CT scan was performed according to ALARA (as low as reasonable achievable). COMPARISON: none FINDINGS: The visualized lung bases shows few subsegmental atelectasis bands in left lung base ABDOMEN/PELVIS: The liver is normal in size and attenuation. No focal liver lesions are seen. There is no intra or extrahepatic biliary ductal dilatation. Hepatic vasculature is patent. The gallbladder is unremarkable. The spleen, pancreas, and adrenal glands are unremarkable. The kidneys are normal in size and attenuation. There is no hydronephrosis or perinephric fat stranding. No renal calculi or renal masses are identified. The ureters are normal in caliber and no ureteral calculi are seen. The bladder is normal in contour. Multiple uncomplicated colonic diverticulosis No evidence of focal or diffuse bowel wall thickening or evidence of bowel obstruction is seen. The appendix is visualized in the right lower quadrant and appears within normal limits. No adenopathy or fluid collections are seen. The aorta is normal in caliber with atheroscleoritc changes No aggressive appearing osseous lesions are identified. 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 Multiple uncomplicated colonic diverticulosis 2. 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 No acute intra abdominal abnormality detected Electronically signed by Livan Palomo 01-04-2025 01:[address] 01/03/25 23:40 EXAM: CT cervical spine wo con CLINICAL HISTORY: Trauma TECHNIQUE: Computed tomography of the cervical spine performed without intravenous contrast. Contiguous axial images were obtained from the skull base to T2, with sagittal and coronal reformatted images reconstructed from the axial data. CT scan was performed according to ALARA (as low as reasonable achievable). COMPARISON: FINDINGS: The normal cervical lordotic curvature is maintained. Grade I retrolisthesis of C4 over C5 and C5 over C6 vertebrae Degenerative changes are noted in the visualized spine in the form of marginal osteophytes, endplate irregularities and sclerosis, reduction in the disc height, small posterior disc bulges, vacuum phenomenon and facet arthropathy changes. Cervical vertebral bodies are normal in height and alignment, with no evidence of fracture or subluxation. Lateral masses of C1 are symmetrical, and the dens is intact. Prevertebral soft tissues are not widened. The remaining suprahyoid and infrahyoid soft tissues in the neck are unremarkable. Decreased intervertebral disc heights with mild posterior disc bulges indenting ventral thecal sacs at C3-C4 to C6-C7 intervertebral disc levels. No spinal canal stenosis. Mild right neuroforaminal narrowing at C6-C7 level. Thyroid gland appears unremarkable. IMPRESSION: 1.No acute fracture or subluxation in the cervical spine 2. 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 The cardiomediastinal silhouette is within normal limits. Displaced fracture of surgical neck of right humerus IMPRESSION: 1. No acute cardiopulmonary disease. No interval changes. 2. Displaced fracture of surgical neck of right humerus- New finding. Electronically signed by Livan Palomo 01-04-2025 01:[address] 01/03/25 23:40 EXAM: CT head/brain wo con CLINICAL HISTORY: Trauma TECHNIQUE: Multiple axial images are obtained from the skull base to the vertex without contrast. CT scan was performed according to ALARA (as low as reasonable achievable). COMPARISON: FINDINGS: There is cerebral atrophy. No evidence of space occupying lesion, hemorrhage, edema, mass effect, midline shift, extra axial collection, or hydrocephalus is noted. Basal cisterns are symmetric and normal in size and configuration. There are scattered periventricular hypodensities as can be seen with chronic microvascular ischemic changes. The eduardo-white matter differentiation is preserved. Visualized paranasal sinuses and mastoid air cells are well aerated. Orbital contents are within normal limits. Bony structures are intact. IMPRESSION: 1. No evidence of acute intracranial abnormality is demonstrated. 2. Chronic microvascular ischemic changes. 3. Cerebral atrophy. No new findings. Suboptimal evaluation due to motion artifacts. Electronically signed by Livan Palomo 01-04-2025 01:28 AM Pelvis X-Ray 01/03/25 23:40 EXAM: XR pelvis 1-2V routine CLINICAL HISTORY: Trauma TECHNIQUE: Radiograph of pelvis was acquired. COMPARISON: none FINDINGS: Diffuse osteopenia Total hip arthroplasty on right side No obvious acute fracture or dislocation. The soft tissues are unremarkable. Visualized joint spaces are well maintained. IMPRESSION: No acute osseous or soft tissue abnormality. Diffuse osteopenia Please note that CT is more sensitive for the detection of occult fractures and in the setting of trauma may consider further evaluation with CT of the pelvis. Electronically signed by Livan Palomo 01-04-2025 01:57 AM Elbow X-Ray 01/03/25 23:41 EXAM: XR elbow RT min 3V routine CLINICAL HISTORY: trauma TECHNIQUE: Radiograph of elbow was acquired. COMPARISON: none FINDINGS: Suspicious mild anterior fat pad elevation is noted. Ultrasound is suggested for confirmation of underlying joint effusion. No definite acute fracture, dislocation or osseous lesion. The joint spaces appear preserved. No fat pad displacement to suggest joint effusion or occult fracture. The adjacent soft tissues appear unremarkable. IMPRESSION: No acute osseous or soft tissue abnormality. Suspicious mild anterior fat pad elevation is noted. Ultrasound is suggested for confirmation of underlying joint effusion. Electronically signed by Livan Palomo 01-04-2025 01:59 AM Shoulder X-Ray 01/03/25 23:41 EXAM: XR shoulder RT min 2V routine CLINICAL HISTORY: trauma TECHNIQUE: Radiograph of shoulder was acquired. COMPARISON: none FINDINGS: Age indeterminate fracture of proximal humerus There is no evidence of dislocation or osseous lesion. The acromioclavicular joint space is preserved. The glenohumeral joint space is preserved. The adjacent soft tissues appear unremarkable, with no evidence of joint effusion. IMPRESSION: Age indeterminate fracture of proximal humerus- suggest CT for further evaluation Electronically signed by Livan Palomo 01-04-2025 01:55 AM Wrist X-Ray 01/03/25 23:41 EXAM: XR wrist RT min 3V routine CLINICAL HISTORY: trauma TECHNIQUE: Radiograph of right wrist was acquired. COMPARISON: none FINDINGS: Degenerative changes at jcknau-grmscjfg-ahikokldm joint. There is no evidence of acute fracture, dislocation or osseous lesion. The carpal bones are well aligned. Rest joint spaces are well preserved. The soft tissues are unremarkable. IMPRESSION: 1. No acute osseous or soft tissue abnormality. 2. Degenerative changes at exfssy-qxofvmqf-ghatnuqkh joint. Electronically signed by Livan Palomo 01-04-2025 01:[address] 01/04/25 02:00 EXAM: CT shoulder RT wo con CLINICAL HISTORY: ro fx TECHNIQUE: Contiguous axial CT images of the shoulder joint were obtained without intravenous contrast. Coronal and sagittal reconstructions were likewise performed and indicated to increase the sensitivity for detecting clinically relevant pathology. CT scan was performed according to ALARA (as low as reasonably achievable). COMPARISON: none. FINDINGS: Degenerative changes in the form of asymmetrical reduction of gleno-humeral joint space, osteophytes and subchondral cystic changes are seen. Acute comminuted and displaced fracture in the region of surgical neck of proximal humerus There is mild reduction of acromioclavicular space with degenerative changes Rest of the bones are normal in alignment. The muscles around the shoulder joint are grossly unremarkable. The intermuscular fat planes are intact. IMPRESSION: 1. 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 2. Acute comminuted and displaced fracture in the region of surgical neck of proximal humerus 3. Mild reduction of acromioclavicular space with degenerative changes Electronically signed by Livan Palomo 01-04-2025 03:12 AM ECG Additional Comments: ECG.. Normal sinus rhythm rate of 77. QTc 511. Code Status & VTE Plan VTE Prophylaxis Plan VTE Prophylaxis will be ordered: Yes (1) Fracture of humerus Encounter type: initial encounter Fracture type: closed Humerus Location: proximal Laterality: right
[2025-01-04] MEDS ORDERED: NITROGLYCERIN SL 0.4 MG/TAB TAB SL PRN (06:43)
[2025-01-04] MEDS ORDERED: POLYETHYLENE (MIRALAX) 17 GM PACK PO PRN (06:43)
[2025-01-04 07:15] LABS: Hematocrit (blood only) 34.0 % (37.0-47.0); Hemoglobin 11.5 g/dl (12.0-16.0); Immature Granulocytes # (auto) 0.03 K/uL (0.01-0.20); Immature Granulocytes % (auto) 0.3 %; Mean Corpuscular Hemoglobin 31.8 pg (25.0-34.0); Mean Corpuscular Volume 93.9 fL (80.0-100.0); Platelet Count 127 K/uL (130-400); RDW Standard Deviation 44.3 fL (36.4-46.3); Red Blood Count 3.62 M/uL (4.20-5.40); White Blood Count 10.09 K/ul (4.8-10.8)
[2025-01-04 07:19] VITALS: RESP 18
[2025-01-04 07:29] LABS: Anion Gap 7.0 (3-11); Blood Urea Nitrogen 21.0 mg/dl (6-23); Calcium 8.8 mg/dl (8.6-10.3); Carbon Dioxide 28.0 mmol/L (21-32); Chloride 106.0 mmol/L (98-107); Creatinine Clr Calc Pharmacy 59.5 ml/min; Glucose 129.0 mg/dl (70-99(Fasting)); Magnesium 1.8 mg/dl (1.7-2.4); Potassium 3.4 mmol/L (3.5-5.1); Sodium 141.0 mmol/L (136-145)
[2025-01-04] MEDS: ACETAMINOPHEN 325 MG TAB PO PRN (08:02)
[2025-01-04] MEDS: SODIUM CHLORIDE 0.9% 1,000 ML IV SCH (08:03)
[2025-01-04] MEDS: CEROVITE ADV FORMULA TAB PO SCH (08:04)
[2025-01-04] MEDS: SIMVASTATIN 20 MG TAB PO SCH (08:04)
[2025-01-04] MEDS: hydroCHLOROthiazide 25 MG TAB PO SCH (08:04)
[2025-01-04] MEDS: CHOLECALCIFEROL 25 MCG (1000 UNITS) TAB PO SCH (08:04)
[2025-01-04] MEDS: CYANOCOBALAMIN (B-12) 100 MCG TABLET PO SCH (08:04)
--- NOTE | 2025-01-04 08:12 | Cardiology Consultation ---
Date of Consultation January 04, 2025 Assessment & Plan (1) Prolonged QT interval: (2) Status post fall: (3) Hypokalemia: (4) HTN (hypertension): (5) Alzheimer dementia: Supervising Physician Co-Signing Physician Notes Attending Staff: 74 yo woman Dementia S/P Fall Right Humerus Fx Cardiac Consultation for Syncope and QT Prolongation * On Zoloft + Namenda * Hypokalemia on presentation 3.3 * Initial QTC >500; repeat around 480 Plans: * ECHOcardiogram - ordered and results pending * Telemetry * Please replete K+ * K+ goal 4.5-5 * Mag++ goal >2 * TSH - Pending * QTC prolongation may be exacerbated by Hypokalemia * Repeat EKG once K+ is 4.5-5 * Patient was on HCTZ - this may be a driver medic for the hypokalemia * Consider adding aldactone 25 mg po per day to counteract hypokalemic effects of HCTZ or consider switching to other BP med * Would leave the question of Namenda/Zoloft discontinuation/continuation to her neurologist/PCP * 50 min spent addressing challenges, educating and advancing daily plan of care * Discussed with family * Please call back with any additional question Nate Burnett History of Present Illness Reason for Consultation: ? Syncope. ? QT prolongation Requesting Physician: [facility] Hospitalist Service, Dr. Iker Aguirre Attending Physician: [facility] Hospitalist Service, Dr. López Beard, DO History of Present Illness 74-year-old female with Alzheimer's dementia admitted on January 04, 2025 status post unwitnessed fall. Imaging in the ER with a right humerus fracture. Cardiology consulted secondary to possible syncope and QTc prolongation on EKG. Allergies Allergy/AdvReac Type Severity Reaction Status Date / Time No Known Allergies Allergy Verified 12/02/23 07:12 Home Medications Medication Instructions Recorded Confirmed Type acetaminophen 650 mg 650 mg PO Q6H PRN pain #100 tabs 01/04/25 Rx tablet,extended release (Tylenol Arthritis Pain) cholecalciferol (vitamin D3) 25 25 mcg PO DAILY 01/04/25 01/04/25 History mcg (1,000 unit) capsule (Vitamin D3) cyanocobalamin (vitamin B-12) 100 100 mcg PO DAILY 01/04/25 01/04/25 History mcg tablet hydrochlorothiazide 25 mg tablet 12.5 mg PO DAILY 01/04/25 01/04/25 History memantine 14 mg capsule 14 mg PO DAILY 01/04/25 01/04/25 History sprinkle,extended release 24hr [id number] 8 mg-folic 400 1 tab PO DAILY 01/04/25 01/04/25 History mcg-K 50 mcg-lutein 300 mcg tablet (Centrum Silver Women) sertraline 50 mg tablet 50 mg PO DAILY 01/04/25 01/04/25 History simvastatin 20 mg tablet 20 mg PO DAILY 01/04/25 01/04/25 History Patient History Medical History Encounter for pre-operative examination Arthritis of right hip Cognitive decline No definitive diagnosis per daughter Reason for Memantine Dyslipidemia History of COVID-19 (2021) Symptoms resolved Surgical History Hx of colonoscopy Hx of vascular surgery varisose veins Social History Smoking Status: Never smoker Second Hand Exposure: No; Do You Dip or Chew Tobacco: No; Hx Alcohol Use: No Hx Substance Use: No Preferred Language: German Communication Ability: Effective Communication Ability Comment: 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 Physical Exam Physical Exam: thin woman Glasses No elevation in JVP No - No LVOT murmur CTA B No C/C/E Warm and perfused Right arm in sling Results & Data Vital Signs (Past 12 Hours) Vital Signs Temp Pulse Pulse Resp BP BP Pulse Ox 01/04/25 07:00 36.3 C L 71 18 166/73 H 94 01/04/25 05:24 67 29 H 99 01/04/25 05:00 57 L 20 97 01/04/25 05:00 112/66 01/04/25 05:00 112/66 01/04/25 04:32 161/52 H 01/04/25 04:32 19 132/74 96 01/04/25 04:01 60 19 126/84 95 01/04/25 03:57 60 19 95 01/04/25 03:51 63 23 96 01/04/25 03:45 60 01/04/25 03:00 70 17 156/54 H 98 01/04/25 02:30 60 16 151/92 H 99 01/04/25 02:00 81 26 H 137/116 H 98 01/04/25 01:31 92 H 22 155/67 H 93 01/04/25 01:00 78 20 129/92 100 01/04/25 00:34 78 20 156/71 H 100 01/03/25 23:40 60 22 151/92 H 98 01/03/25 23:40 65 01/03/25 23:24 36.7 C 65 20 166/72 H 97 O2 Del Method 01/04/25 07:00 Room Air 01/04/25 05:24 01/04/25 05:00 01/04/25 05:00 01/04/25 05:00 01/04/25 04:32 01/04/25 04:32 01/04/25 04:01 01/04/25 03:57 01/04/25 03:51 01/04/25 03:45 01/04/25 03:00 01/04/25 02:30 01/04/25 02:00 01/04/25 01:31 01/04/25 01:00 01/04/25 00:34 01/03/25 23:40 Room Air 01/03/25 23:40 01/03/25 23:24 Room Air Laboratory Results Cardiac Enzymes 01/03/25 01/04/25 Range/Units 23:41 06:54 AST 30 (13-39) U/L Troponin I High Sens 10.3 12.3 (0-14) pg/ml Coagulation 01/03/25 Range/Units 23:40 PT 10.8 (9.0-12.0) Seconds APTT 24 (21-31) Seconds CBC 01/03/25 01/04/25 Range/Units 23:40 06:54 WBC 4.83 10.09 (4.8-10.8) K/ul RBC 3.80 L 3.62 L (4.20-5.40) M/uL Hgb 12.5 11.5 L (12.0-16.0) g/dl Hct 35.9 L 34.0 L (37.0-47.0) % Plt Count 150 127 L (130-400) K/uL Neut # (Auto) 4.08 9.01 H (1.40-6.50) K/uL Lymph # (Auto) 0.67 L 0.61 L (1.20-3.40) K/uL [place] # (Auto) 0.06 L 0.43 (0.11-0.59) K/uL Eos # (Auto) 0.00 0.00 (0.00-0.50) K/uL Baso # (Auto) 0.00 0.01 (0.00-0.20) K/uL Comprehensive Metabolic Panel 01/03/25 01/04/25 Range/Units 23:41 06:54 Sodium 140 141 (136-145) mmol/L Potassium 3.3 L 3.4 L (3.5-5.1) mmol/L Chloride 102 106 (98-107) mmol/L Carbon Dioxide 26 28 (21-32) mmol/L BUN 25 H 21 (6-23) mg/dl Creatinine 0.68 0.57 L (0.6-1.2) mg/dl Glucose 192 H 129 H (70-99(Fasting)) mg/dl Calcium 9.8 8.8 (8.6-10.3) mg/dl AST 30 (13-39) U/L ALT 17 (7-52) U/L Alkaline Phosphatase 51 (34-104) U/L Total Protein 7.1 (6.0-8.3) gm/dl Albumin 4.2 (3.4-5.0) gm/dl Intake and Output 01/03/25 01/04/25 01/04/25 22:59 06:59 14:59 Other: Weight 43.8 kg 43.5 kg Weight Measurement Method [facility] Patient Weight 01/05/25 06:59 Weight 43.5 kg Diagnostic Findings January 04, 2025 EKG: Normal sinus rhythm at 77 bpm. QTc 511 ms. A second EKG on January 04, 2025 revealed normal sinus rhythm at 75 bpm with a QTc of 493 ms. Telemetry: Sinus rhythm throughout, heart rate predominantly in the 60s PG Care Time/CCT Total # of Minutes Spent Total Time Spent with Patient: Total time spent is greater than 50% in coordination of care (as documented) at patient's floor/unit and/or counseling patient: Coding Level of Care Code 91984 IN/OBS CONSULT LVL 5,80M Diagnoses Prolonged QT interval R94.31 Status post fall Z91.81 Hypokalemia E87.6 HTN (hypertension) I10 Alzheimer dementia G30.9; F02.80
--- NOTE | 2025-01-04 11:15 | Orthopedic Consultation ---
Date of Service January 04, 2025 Assessment & Plan (1) Closed fracture of right proximal humerus: * Case/imaging reviewed and discussed with Dr Case * Recommend closed management of proximal humerus fracture * Sling for comfort * Okay for gentle passive range of motion as tolerated * NWB right upper extremity * No further orthopedic intervention indicated at this time * Disposition: TBD * Daily treatment: Physical Therapy/ Occupational Therapy per protocol * Pain control * Remainder care per primary team * Will follow peripherally, plan for office follow-up for repeat x-rays in the coming weeks History of Present Illness Reason for Consultation: Right shoulder pain Requesting Physician: . Attending Physician: DO Monserrat Pinzon .Patient is a 74 y/o female with right shoulder pain. PMH including Alzheimer's dementia, HTN, prolonged QT interval. Patient is known to [facility], treats with Dr. Jaime for conservative management of glenohumeral arthritis, received glenohumeral corticosteroid injection yesterday. Presents to hospital with right shoulder pain after an apparent fall. Per family, fall was unwitnessed however whether it was a true fall or syncopal event patient was found on the ground with injury to the right shoulder. Difficulty moving the right arm. Brought to ED for further evaluation. Current workup including x-ray right shoulder demonstrating fracture of the proximal humerus/surgical neck. Admitted to hospital medicine team secondary to questionable syncopal event. Orthopedics consulted for management recommendations. At time of exam patient lying comfortably in bed, no acute distress. Family at bedside and provides history. Patient is apparently rather comfortable at rest. Endorses pain of the right shoulder with attempted movement but is subjectively improved with sling immobilization. Denies tingling numbness of the right upper extremity. Allergies Allergy/AdvReac Type Severity Reaction Status Date / Time No Known Allergies Allergy Verified 12/02/23 07:12 Home Medications Medication Instructions Recorded Confirmed Type cholecalciferol (vitamin D3) 25 25 mcg PO DAILY 01/04/25 01/04/25 History mcg (1,000 unit) capsule (Vitamin D3) cyanocobalamin (vitamin B-12) 100 100 mcg PO DAILY 01/04/25 01/04/25 History mcg tablet hydrochlorothiazide 25 mg tablet 12.5 mg PO DAILY 01/04/25 01/04/25 History memantine 14 mg capsule 14 mg PO DAILY 01/04/25 01/04/25 History sprinkle,extended release 24hr wzrlfezu-[id number]-[id number] 8 mg-folic 400 1 tab PO DAILY 01/04/25 01/04/25 History mcg-K 50 mcg-lutein 300 mcg tablet (Centrum Silver Women) sertraline 50 mg tablet 50 mg PO DAILY 01/04/25 01/04/25 History simvastatin 20 mg tablet 20 mg PO DAILY 01/04/25 01/04/25 History Past Med/Surg History Problem List Closed fracture of right proximal humerus Alzheimer dementia HTN (hypertension) Hypokalemia Status post fall Prolonged QT interval (Acute) Fracture of humerus (Acute) Status post right hip replacement Medical History Encounter for pre-operative examination Arthritis of right hip Cognitive decline No definitive diagnosis per daughter Reason for Memantine Dyslipidemia History of COVID-19 (2021) Symptoms resolved Surgical History Hx of colonoscopy Hx of vascular surgery varisose veins Social History Smoking Status: Never smoker Second Hand Exposure: No; Do You Dip or Chew Tobacco: No; Hx Alcohol Use: No Hx Substance Use: No Preferred Language: Malian Communication Ability: Effective Communication Ability Comment: cognitive decline 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 Physical Exam . * General: Alert and oriented, no acute distress * Constitutional: well-developed, well-nourished. * Respiratory: Normal respiratory effort, no distress * Gastrointestinal: No tenderness to palpation, no rigidity or guarding. * Skin: No rash or lesion. * Neurologic: Grossly normal * Musculoskeletal: Right upper extremity with no obvious deformity or overlying skin changes to the right shoulder region. TTP proximal humerus, anterior shoulder region. Otherwise no specific tenderness of the upper arm, elbow, forearm, wrist/hand. AROM shoulder not assessed secondary to fracture. AROM wrist flexion/extension, finger flexion/extension/opposition intact. Sensation intact radial/median/ulnar nerve or secretions. Brisk capillary refill at fingers. Results & Data Results & Data Laboratory Results . 01/04/25 01/03/25 01/03/25 06:54 23:41 23:40 WBC 10.09 4.83 RBC 3.62 L 3.80 L Hgb 11.5 L 12.5 Hct 34.0 L 35.9 L MCV 93.9 94.5 MCH 31.8 32.9 MCHC 33.8 34.8 RDW Std Deviation 44.3 43.9 RDW Coeff of Maria Esther 12.9 12.8 Plt Count 127 L 150 MPV 10.6 10.6 Immature Gran % (Auto) 0.3 0.4 Neut % (Auto) 89.3 84.5 Lymph % (Auto) 6.0 13.9 [place] % (Auto) 4.3 1.2 Eos % (Auto) 0.0 0.0 Baso % (Auto) 0.1 0.0 Neut # (Auto) 9.01 H 4.08 Lymph # (Auto) 0.61 L 0.67 L [place] # (Auto) 0.43 0.06 L Eos # (Auto) 0.00 0.00 Baso # (Auto) 0.01 0.00 Immature Gran # (Auto) 0.03 0.02 PT 10.8 INR 1.0 APTT 24 PTT Ratio 0.9 Sodium 141 140 Potassium 3.4 L 3.3 L Chloride 106 102 Carbon Dioxide 28 26 Anion Gap 7 12 H BUN 21 25 H Creatinine 0.57 L 0.68 Est Cr Clr Drug Dosing 59.5 Not Reportable eGFR 95.30 91.33 BUN/Creatinine Ratio 36.8 H 36.8 H Glucose 129 H 192 H Calcium 8.8 9.8 Phosphorus 2.3 L Magnesium 1.8 1.8 Total Bilirubin 0.7 AST 30 ALT 17 Alkaline Phosphatase 51 Total Creatine Kinase 87 Troponin I High Sens 12.3 10.3 Total Protein 7.1 Albumin 4.2 Globulin 2.9 Albumin/Globulin Ratio 1.4 Lipase 47 Diagnostic Findings . Abdomen/Pelvis CT 01/03/25 23:40 EXAM: CT abd pelvis IV con only CLINICAL HISTORY: Trauma TECHNIQUE: Multiple contiguous axial images were obtained from the level of diaphragm to the pubis symphysis. This study was acquired after the IV administration of iodinated contrast material, given the patients indications for the examination. If IV contrast material had not been administered, the likelihood of detecting abnormalities relevant to the patients condition would have been substantially decreased. Coronal and sagittal reformatted images were generated and reviewed to improve anatomic localization and optimize lesion detection. CT scan was performed according to ALARA (as low as reasonable achievable). COMPARISON: none FINDINGS: The visualized lung bases shows few subsegmental atelectasis bands in left lung base ABDOMEN/PELVIS: The liver is normal in size and attenuation. No focal liver lesions are seen. There is no intra or extrahepatic biliary ductal dilatation. Hepatic vasculature is patent. The gallbladder is unremarkable. The spleen, pancreas, and adrenal glands are unremarkable. The kidneys are normal in size and attenuation. There is no hydronephrosis or perinephric fat stranding. No renal calculi or renal masses are identified. The ureters are normal in caliber and no ureteral calculi are seen. The bladder is normal in contour. Multiple uncomplicated colonic diverticulosis No evidence of focal or diffuse bowel wall thickening or evidence of bowel obstruction is seen. The appendix is visualized in the right lower quadrant and appears within normal limits. No adenopathy or fluid collections are seen. The aorta is normal in caliber with atheroscleoritc changes No aggressive appearing osseous lesions are identified. 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 Multiple uncomplicated colonic diverticulosis 2. 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 No acute intra abdominal abnormality detected Electronically signed by Livan Palomo 01-04-2025 01:[address] 01/03/25 23:40 EXAM: CT cervical spine wo con CLINICAL HISTORY: Trauma TECHNIQUE: Computed tomography of the cervical spine performed without intravenous contrast. Contiguous axial images were obtained from the skull base to T2, with sagittal and coronal reformatted images reconstructed from the axial data. CT scan was performed according to ALARA (as low as reasonable achievable). COMPARISON: FINDINGS: The normal cervical lordotic curvature is maintained. Grade I retrolisthesis of C4 over C5 and C5 over C6 vertebrae Degenerative changes are noted in the visualized spine in the form of marginal osteophytes, endplate irregularities and sclerosis, reduction in the disc height, small posterior disc bulges, vacuum phenomenon and facet arthropathy changes. Cervical vertebral bodies are normal in height and alignment, with no evidence of fracture or subluxation. Lateral masses of C1 are symmetrical, and the dens is intact. Prevertebral soft tissues are not widened. The remaining suprahyoid and infrahyoid soft tissues in the neck are unremarkable. Decreased intervertebral disc heights with mild posterior disc bulges indenting ventral thecal sacs at C3-C4 to C6-C7 intervertebral disc levels. No spinal canal stenosis. Mild right neuroforaminal narrowing at C6-C7 level. Thyroid gland appears unremarkable. IMPRESSION: 1.No acute fracture or subluxation in the cervical spine 2. 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 The cardiomediastinal silhouette is within normal limits. Displaced fracture of surgical neck of right humerus IMPRESSION: 1. No acute cardiopulmonary disease. No interval changes. 2. Displaced fracture of surgical neck of right humerus- New finding. Electronically signed by Livan Palomo 01-04-2025 01:[address] 01/03/25 23:40 EXAM: CT head/brain wo con CLINICAL HISTORY: Trauma TECHNIQUE: Multiple axial images are obtained from the skull base to the vertex without contrast. CT scan was performed according to ALARA (as low as reasonable achievable). COMPARISON: FINDINGS: There is cerebral atrophy. No evidence of space occupying lesion, hemorrhage, edema, mass effect, midline shift, extra axial collection, or hydrocephalus is noted. Basal cisterns are symmetric and normal in size and configuration. There are scattered periventricular hypodensities as can be seen with chronic microvascular ischemic changes. The eduardo-white matter differentiation is preserved. Visualized paranasal sinuses and mastoid air cells are well aerated. Orbital contents are within normal limits. Bony structures are intact. IMPRESSION: 1. No evidence of acute intracranial abnormality is demonstrated. 2. Chronic microvascular ischemic changes. 3. Cerebral atrophy. No new findings. Suboptimal evaluation due to motion artifacts. Electronically signed by Livan Palomo 01-04-2025 01:28 AM Pelvis X-Ray 01/03/25 23:40 EXAM: XR pelvis 1-2V routine CLINICAL HISTORY: Trauma TECHNIQUE: Radiograph of pelvis was acquired. COMPARISON: none FINDINGS: Diffuse osteopenia Total hip arthroplasty on right side No obvious acute fracture or dislocation. The soft tissues are unremarkable. Visualized joint spaces are well maintained. IMPRESSION: No acute osseous or soft tissue abnormality. Diffuse osteopenia Please note that CT is more sensitive for the detection of occult fractures and in the setting of trauma may consider further evaluation with CT of the pelvis. Electronically signed by Livan Palomo 01-04-2025 01:57 AM Elbow X-Ray 01/03/25 23:41 EXAM: XR elbow RT min 3V routine CLINICAL HISTORY: trauma TECHNIQUE: Radiograph of elbow was acquired. COMPARISON: none FINDINGS: Suspicious mild anterior fat pad elevation is noted. Ultrasound is suggested for confirmation of underlying joint effusion. No definite acute fracture, dislocation or osseous lesion. The joint spaces appear preserved. No fat pad displacement to suggest joint effusion or occult fracture. The adjacent soft tissues appear unremarkable. IMPRESSION: No acute osseous or soft tissue abnormality. Suspicious mild anterior fat pad elevation is noted. Ultrasound is suggested for confirmation of underlying joint effusion. Electronically signed by Livan Palomo 01-04-2025 01:59 AM Shoulder X-Ray 01/03/25 23:41 EXAM: XR shoulder RT min 2V routine CLINICAL HISTORY: trauma TECHNIQUE: Radiograph of shoulder was acquired. COMPARISON: none FINDINGS: Age indeterminate fracture of proximal humerus There is no evidence of dislocation or osseous lesion. The acromioclavicular joint space is preserved. The glenohumeral joint space is preserved. The adjacent soft tissues appear unremarkable, with no evidence of joint effusion. IMPRESSION: Age indeterminate fracture of proximal humerus- suggest CT for further evaluation Electronically signed by Livan Palomo 01-04-2025 01:55 AM Wrist X-Ray 01/03/25 23:41 EXAM: XR wrist RT min 3V routine CLINICAL HISTORY: trauma TECHNIQUE: Radiograph of right wrist was acquired. COMPARISON: none FINDINGS: Degenerative changes at tcnirt-kcdoclmf-kubafxsax joint. There is no evidence of acute fracture, dislocation or osseous lesion. The carpal bones are well aligned. Rest joint spaces are well preserved. The soft tissues are unremarkable. IMPRESSION: 1. No acute osseous or soft tissue abnormality. 2. Degenerative changes at xwvuyx-jgvpqzqx-jwxlprqfx joint. Electronically signed by Livan Palomo 01-04-2025 01:[address] 01/04/25 02:00 EXAM: CT shoulder RT wo con CLINICAL HISTORY: ro fx TECHNIQUE: Contiguous axial CT images of the shoulder joint were obtained without intravenous contrast. Coronal and sagittal reconstructions were likewise performed and indicated to increase the sensitivity for detecting clinically relevant pathology. CT scan was performed according to ALARA (as low as reasonably achievable). COMPARISON: none. FINDINGS: Degenerative changes in the form of asymmetrical reduction of gleno-humeral joint space, osteophytes and subchondral cystic changes are seen. Acute comminuted and displaced fracture in the region of surgical neck of proximal humerus There is mild reduction of acromioclavicular space with degenerative changes Rest of the bones are normal in alignment. The muscles around the shoulder joint are grossly unremarkable. The intermuscular fat planes are intact. IMPRESSION: 1. 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 2. Acute comminuted and displaced fracture in the region of surgical neck of proximal humerus 3. Mild reduction of acromioclavicular space with degenerative changes Electronically signed by Livan Palomo 01-04-2025 03:12 AM PG Care Time/CCT Total # of Minutes Spent Total Time Spent with Patient: Total time spent is greater than 50% in coordination of care (as documented) at patient's floor/unit and/or counseling patient: C[place] [address] IN/OBS CONSULT LVL 3,45M Patient Type Established Medical Decision Making Low Complexity Diagnoses Closed fracture of right proximal humerus S42.201A
[2025-01-04 11:19] VITALS: BP 103/54; PULSE 67; TEMP 98.4; O2SAT 95
[2025-01-04 11:56] LABS: Thyroid Stimulating Hormone 1.073 uIu/ml (0.300-4.500)
--- NOTE | 2025-01-04 12:17 | Discharge Summary ---
Discharge Summary Date of Service January 04, 2025 Principal Dx & Hospital Course #1 = Principal Diagnosis (1) Fall from standing: (2) Closed fracture of right proximal humerus: (3) Alzheimer dementia: (4) HTN (hypertension): (5) Prolonged QT interval: Plan Patient 74-year-old female presented to the emergency room after having been found by her on the basement floor after a fall. No one knows for sure how long she was there. No one knows the mechanism of the fall. In the emergency room noted to have a proximal humerus fracture. Also EKG showed a slightly prolonged QT interval. Patient was cared for in the hospital. She is placed in immobilizer. Her pain was easily controlled with Tylenol. Orthopedic consultation was obtained who recommended immobilization and gentle range of motion exercises as tolerated. Cardiology consultation was obtained. Repeat EKG showed a QT interval below 500. There was no other significant laboratory abnormalities. After discussion with the family they are committed to taking her home. They are concerned that she will get more delirious and have more significant behavioral disturbances the longer she is in the hospital. We consulted case management help coordinate home health care. She will be discharged home with home health care and Tylenol for pain control to follow-up with her outpatient providers. Notes For Next Care Provider Follow-up with orthopedics as coordinated through their office Home health care Medication Changes From Visit Tylenol as needed for pain Discontinue hydrochlorothiazide Admission HPI Per Admitting Provider 74-year-old female with past medical history significant for dyslipidemia, vitamin D deficiency, osteoporosis, right rotator cuff arthropathy, chronic bilateral low back pain, Alzheimer's disease, 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 As per he did not see the patient going to the basement. Patient seem to call him. When he went down she was found on the floor. and daughter in the room. Family do not know how long she laid there. But seems to be short time per er. Family do not know whether she passed out. Patient has dementia and could not remember the fall. In the ER imaging study shows right humerus fracture. Patient complains of pain in the right shoulder. Right shoulder is in sling. Patient is alert and awake and seems comfortable. Denies any headache. Denies chest pain. Denies abdominal pain. Denies back pain. No recent fevers as per family. No nausea or vomiting. No diarrhea or constipation. Eating okay. Hemodynamics okay. Past medical history. As mentioned above Past surgical history. Colonoscopy. Cataracts. Right total hip replacement. Social history. . No smoking. Alcohol rarely. No drug use. Admission Exam Per Admitting Provider See H&P Discharge Exam Constitutional: Alert, pleasant, no acute distress HEENT: Mucous membranes moist. Lungs: Clear to auscultation, decreased, no wheezes rales or rhonchi CV: S1-S2, regular Abdomen: Soft, nontender, nondistended Extremities: right upper extremity in immobilizer Neuro: No focal deficits Psych: Cooperative, abnormal cognition and judgment and memory Updated Medication List Medication Instructions Recorded Confirmed Type acetaminophen 650 mg 650 mg PO Q6H PRN pain #100 tabs 01/04/25 Rx tablet,extended release (Tylenol Arthritis Pain) cholecalciferol (vitamin D3) 25 25 mcg PO DAILY 01/04/25 01/04/25 History mcg (1,000 unit) capsule (Vitamin D3) cyanocobalamin (vitamin B-12) 100 100 mcg PO DAILY 01/04/25 01/04/25 History mcg tablet hydrochlorothiazide 25 mg tablet 12.5 mg PO DAILY 01/04/25 01/04/25 History memantine 14 mg capsule 14 mg PO DAILY 01/04/25 01/04/25 History sprinkle,extended release 24hr [id number]-[id number]-[id number] 8 mg-folic 400 1 tab PO DAILY 01/04/25 01/04/25 History mcg-K 50 mcg-lutein 300 mcg tablet (Centrum Silver Women) sertraline 50 mg tablet 50 mg PO DAILY 01/04/25 01/04/25 History simvastatin 20 mg tablet 20 mg PO DAILY 01/04/25 01/04/25 History Hospital Stay Data Consultations 01/04/25 01:42 ED Decision to Admit Stat 01/04/25 08:00 Consult Cardiology Routine Consult Orthopedic Surgery Routine Diagnostic Imagining Performed 01/03/25 23:40 CT abd pelvis IV con only Stat CT cervical spine wo con Stat CT head/brain wo con Stat 01/04/25 02:00 CT shoulder RT wo con Stat Reviewed imaging, laboratory and diagnostic studies. Pertinent findings as below. WBCs 10.0 8 hemoglobin 11.5 Platelets of 127 Potassium 3.4 and repleted Creatinine 0.57Troponins negative x 2 sets TSH 1.073 I refer you to multiple imaging reports for details Pending Results Patient Have Any Pending Studies at Discharge: No Discharge Instructions Given to Patient (Per Discharging Provider) Keep right upper extremity in immobilizer. Can remove for gentle range of motion exercises Home Health Attestation I certify that this patient is under my care and that I, or a physicians medical assistant ob gyn working with me, had a face to-face encounter that meets the home health [id number] encounter requirements with this patient. The encounter with the patient was in whole, or in part, for the following medical condition, which is the primary reason for home health care (list medical condition): I certify that, based on my findings, the following services are medically necessary home health services: My clinical findings support the need for the above services because: Further, I certify that my clinical findings support that this patient is homebound (i.e. absences from home require considerable and taxing effort and are for medical reasons or advent services or infrequently or of short duration when for other reasons) because: Certification for Home Health Services: Based on the above findings, I certify that this patient is confined to the home and needs intermittent penitentiary care, physical therapy and/or speech therapy or continues to need occupational therapy. The patient is under my care, and I have initiated the establishment of the plan of care. This patient will be followed by a physician who will periodically review the plan of care. Total Time Total Time Spent Total Time Spent (In Minutes): 35
[2025-01-04] MEDS: MAGNESIUM SULFATE / D5W 1 GM/100 ML BAG IV SCH (12:34)
--- NOTE | 2025-01-04 22:23 | Electrocardiogram Report ---
Test Reason : Blood Pressure : */* mmHG Vent. Rate : 75 BPM Atrial Rate : 75 BPM P-R Int : 166 ms QRS Dur : 90 ms QT Int : 442 ms P-R-T Axes : 76 30 83 degrees QTcB Int : 493 ms Normal sinus rhythm Prolonged QT Abnormal ECG When compared with ECG of 04-Jan-2025 00:41, (unconfirmed) No significant change was found Confirmed by Danielito Aguilar ([id number]) on 01/04/2025 10:23:18 PM Referred By: REFERRED SELF Confirmed By: Danielito Aguilar
--- NOTE | 2025-01-04 22:24 | Electrocardiogram Report ---
Test Reason : Blood Pressure : */* mmHG Vent. Rate : 77 BPM Atrial Rate : 77 BPM P-R Int : 162 ms QRS Dur : 88 ms QT Int : 452 ms P-R-T Axes : 70 24 85 degrees QTcB Int : 511 ms Normal sinus rhythm Prolonged QT Abnormal ECG When compared with ECG of 24-Nov-2023 11:19, QT has lengthened Confirmed by Danielito Aguilar ([id number]) on 01/04/2025 10:24:23 PM Referred By: REFERRED SELF Confirmed By: Danielito Aguilar
--- NOTE | 2025-01-08 12:34 | Coding Query ---
To promote full compliance with coding requirements relating to patient care, physician participation is requested in all cases of punch press operator uncertainty. Please assist us with the question(s) below: Coding Question(s): It was noted throughout the record that the patient has/is suspected to have osteoporosis. According to coding guidelines "a code for osteoporotic fracture, and not a traumatic fracture, should be used for any patient with known osteoporosis who suffers a fracture, even if the patient had a minor fall or trauma, if that fall or trauma would not usually break a normal, healthy bone." Please indicate below the type of fracture: Physician's Response(s): ( ) Osteoporotic fracture of (R PROXIMAL HUMERUS) ( ) Traumatic fracture of (R PROXIMAL HUMERUS) ( x ) Other, please specify: Suspected traumatic fracture of right proximal humerus in the setting of some osteopenia MTDD
== END 2025-01-04 13:52 | disposition home health service (06) | DRG 563 ==
LOC: ED 23:05 → 2S 01-04 02:55